=== PATIENT | female | born 1940 | race Caucasian/White ===

== ENCOUNTER 2017-03-01 03:59 | Inpatient (IN) | payer OTHER ==
[2017-03-01] MEDS ORDERED: AMPICILLIN/SULBACTAM 3 GM in NS 100 ML IV ONE (04:32)
[2017-03-01] MEDS ORDERED: NS 500 ML IV ONE (04:36)
--- NOTE | 2017-03-01 04:43 | EDPHY ---
H & P Time Seen by Provider: 03/01/17 04:18 HPI/ROS: HPI Mechanical fall, cat bite to right foot. 76-year-old female by ambulance from her assisted living facility. This patient reports that she got up in the middle of the night. She thinks she got up to go to the bathroom. She went to her balcony door. She is not sure why she did this. She then tripped on the door slide fell to the ground on her balcony. It took her a while to get up then she was able to get up. She was assisted by staff after she had gotten up by herself and got herself back to her bed. She was brought to the emergency department to be evaluated. She reports a history of a cat bite several days ago to her right foot. She has some right foot swelling secondary to this. She is not diabetic. ROS: Constitutional: No fever, no chills. No weakness. Eyes: No discharge. No changes in vision. ENT: No sore throat. No nasal congestion or rhinorrhea. Respiratory: No cough. No shortness of breath. Cardiac: No chest pain, no palpitations. Gastrointestinal: No abdominal pain, no vomiting, no diarrhea. Genitourinary: No hematuria. No dysuria or increased frequency with urination. Musculoskeletal: No back pain. No neck pain. Right foot swelling as above. Skin: No rashes. Neurological: No headache. No focal weakness or altered sensation. Past medical history: Chronic pain, Parkinson's. Social history: Nonsmoker. Does have family in the area. From assisted living. No alcohol. Physical Exam: General Appearance: Alert, no distress. This patient is responding to questions appropriately and in full sentences. This patient appears well- hydrated and well-nourished. Head: Normocephalic atraumatic. Face: Facial bones are stable on palpation. Eyes: Pupils equal and round and reactive to light, no pallor or injection. No lid erythema or edema. ENT, Mouth: Mucous membranes moist. Dentition is intact. No malocclusion of the jaw. No tongue lacerations or abrasions. Pharynx is clear. The bilateral nasal canals are clear. No septal hematoma. Respiratory: There are no retractions, lungs are clear to auscultation with good air movement bilaterally. Chest wall is stable to AP and lateral palpation. Cardiovascular: Regular rate and rhythm. No murmur. Gastrointestinal: Abdomen is soft and nontender, no masses, bowel sounds normal. Neurological: Motor sensory function is intact. Cranial nerves are normal. Skin: Warm and dry, no rashes. No lacerations, abrasions or contusions. Musculoskeletal: Neck is supple and nontender. The trachea is midline. No midline cervical, thoracic, lumbar or sacral tenderness on palpation. No flank tenderness on palpation. Right foot examination: Significant for diffuse swelling over the dorsal aspect of the right foot which involves the right leg as well up through the right calf. She has got to puncture wounds dorsal mid lateral aspect of the right foot. There is very faint erythema and some associated warmth to this area. Extremities are symmetrical, full range of motion. All joints in the bilateral upper and bilateral lower extremities range without pain or impingement. No tenderness on palpation of the long bones in the bilateral upper and bilateral lower extremities. Psychiatric: No agitation. No depression. Database: EKG: Imaging: Right foot x-ray series: Negative for acute fracture, subluxation, dislocation and acute radiopaque foreign body. Interpreted by me. Right lower extremity venous ultrasound: Howe cyst, otherwise negative for DVT. Results were discussed with staff radiologist Dr. Gustavo Mckenna. Procedures: Emergency department course: IV placed per EMS. After my evaluation she was started on 3 g of IV Unasyn. X- rays obtained. Will also ultrasound lower extremity to evaluate for possible DVT. I do not suspect significant traumatic injury from her fall. 5:30 a.m., informed by nursing staff that the patient is very unsteady on her feet while she was up trying to go to the bathroom. She is unable to walk without assistance. She is a fall risk. 5:45 a.m., spoke with on-call hospitalist, Dr. Templeton. Case discussed in detail. She has accepted this patient for admission. The patient was admitted to the hospitalist service in stable condition. Differential Diagnosis: The differential diagnosis on this patient includes but is not limited to cat bite right foot, right foot cellulitis secondary to this. This represents a partial list of diagnoses considered. These considerations are based on history , physical exam, past history, reassessment and diagnostic testing. Smoking Status: Never smoked Constitutional: Initial Vital Signs Temperature (C) 37 C 03/01/17 04:05 Heart Rate 93 03/01/17 04:05 Respiratory Rate 16 03/01/17 04:05 Blood Pressure 125/66 H 03/01/17 04:05 O2 Sat (%) 97 03/01/17 04:05 O2 Delivery Mode Room Air Allergies/Adverse Reactions: dental meds Allergy (Unknown, Uncoded 04/05/15 19:40) MYCIN Allergy (Uncoded 09/06/16 12:07) Home Medications: Medication Instructions Recorded Sinemet 08/25/15 Medical Decision Making - Data Points Laboratory Results: Laboratory Results 03/01/17 04:00 03/01/17 04:00 03/01/17 03/01/17 04:00 04:00 WBC 9.01 10^3/uL 10^3/uL (3.80-9.50) RBC 4.45 10^6/uL 10^6/uL (4.18-5.33) Hgb 14.3 g/dL g/dL (12.6-16.3) Hct 43.0 % % (38.0-47.0) MCV 96.6 fL fL (81.5-99.8) MCH 32.1 pg pg (27.9-34.1) MCHC 33.3 g/dL g/dL (32.4-36.7) RDW 12.9 % % (11.5-15.2) Plt Count 199 10^3/uL 10^3/uL (150-400) MPV 10.6 fL fL (8.7-11.7) Neut % (Auto) 74.7 % H % (39.3-74.2) Lymph % (Auto) 16.8 % % (15.0-45.0) [place] % (Auto) 6.3 % % (4.5-13.0) Eos % (Auto) 1.2 % % (0.6-7.6) Baso % (Auto) 0.7 % % (0.3-1.7) Nucleat RBC Rel Count 0.0 % % (0.0-0.2) Absolute Neuts (auto) 6.73 10^3/uL H 10^3/uL (1.70-6.50) Absolute Lymphs (auto) 1.51 10^3/uL 10^3/uL (1.00-3.00) Absolute Monos (auto) 0.57 10^3/uL 10^3/uL (0.30-0.80) Absolute Eos (auto) 0.11 10^3/uL 10^3/uL (0.03-0.40) Absolute Basos (auto) 0.06 10^3/uL 10^3/uL (0.02-0.10) Absolute Nucleated RBC 0.00 10^3/uL 10^3/uL (0-0.01) Immature Gran % 0.3 % % (0.0-1.1) Immature Gran # 0.03 10^3/uL 10^3/uL (0.00-0.10) Sodium 139 mEq/L mEq/L (134-144) Potassium 4.2 mEq/L mEq/L (3.5-5.2) Chloride 105 mEq/L mEq/L (97-110) Carbon Dioxide 23 mEq/l mEq/l (22-31) Anion Gap 11 mEq/L mEq/L (8-16) BUN 17 mg/dL mg/dL (7-23) Creatinine 0.7 mg/dL mg/dL (0.6-1.0) Estimated GFR > 60 Glucose 116 mg/dL H mg/dL (70-100) Calcium 10.0 mg/dL mg/dL (8.5-10.4) Medications Given: Discontinued Medications Ampicillin Sodium/Sulbactam (Sodium 3 gm/ Sodium Chloride) 100 mls @ 200 mls/ hr IV EDNOW ONE PRN Reason: Protocol Stop: 03/01/17 05:01 Last Admin: 03/01/17 05:14 Dose: 100 mls Sodium Chloride (Ns) 500 mls @ 0 mls/hr IV ONCE ONE PRN Reason: Wide Open Stop: 03/01/17 04:37 Last Admin: 03/01/17 05:14 Dose: 500 mls Departure - Departure Disposition: [facility] Clinical Impression: Cat bite of right foot, Mechanical fall at home, Cellulitis of right foot, At risk for falling Referrals: Nichol Mulligan MD [Primary Care Provider] - As per Instructions
[2017-03-01 04:52] LABS: % IMMATURE GRANULYOCYTES 0.3 % (0.0-1.1); ABSOLUTE IMMATURE GRANULOCYTES 0.03 10^3/uL (0.00-0.10); ADD DIFF? NO; ADD MORPH? NO; ADD SCAN? NO; ATYPICAL LYMPHOCYTE FLAG 0 (0-99); FRAGMENT RBC FLAG 0 (0-99); HEMOGLOBIN 14.3 g/dL (12.6-16.3); LEFT SHIFT FLG 0 (0-99); LIPEMIA HEMOLYSIS FLAG 80 (0-99); MEAN CELL HEMOGLOBIN 32.1 pg (27.9-34.1); MEAN CELL HEMOGLOBIN CONCENTR. 33.3 g/dL (32.4-36.7); MEAN CELL VOLUME 96.6 fL (81.5-99.8); MEAN PLATELET VOLUME 10.6 fL (8.7-11.7); PLATELET CLUMPS FLAG 0 (0-99); PLATELET COUNT 199 10^3/uL (150-400); RED BLOOD CELL COUNT 4.45 10^6/uL (4.18-5.33); RED CELL DISTRIBUTION WIDTH 12.9 % (11.5-15.2)
[2017-03-01 04:53] LABS: ANION GAP 11 mEq/L (8-16); CARBON DIOXIDE 23 mEq/l (22-31); CHLORIDE 105 mEq/L (97-110); CREATININE 0.7 mg/dL (0.6-1.0); GLOMERULAR FILTRATION RATE > 60; GLUCOSE 116 mg/dL (70-100); POTASSIUM 4.2 mEq/L (3.5-5.2); SODIUM 139 mEq/L (134-144)
[2017-03-01] MEDS ORDERED: ACETAMINOPHEN 325 MG TAB PO PRN (06:23)
[2017-03-01] MEDS ORDERED: OXYCODONE/APAP 5/325 TAB PO PRN (06:23)
[2017-03-01] MEDS ORDERED: ONDANSETRON DISINTEGRATING 4 MG TAB PO PRN (06:23)
[2017-03-01] MEDS ORDERED: NS 1,000 ML IV ONE (06:23)
[2017-03-01] MEDS ORDERED: ONDANSETRON 4 MG/2 ML VIAL IVP PRN (06:23)
--- NOTE | 2017-03-01 07:47 | GHP ---
[f rep st] HISTORY AND PHYSICAL DATE OF ADMISSION: 03/01/2017 CHIEF COMPLAINT: Fall. HISTORY OF PRESENT ILLNESS: A 76-year-old female with a recent diagnosis of Parkinson's who is inco nsistently taking her medications who dashawn early this morning to let her cat out on her balcony and tripped and fell on the runner of the glass sliding door. Patient was down for approximately a half hour before EMS or assistance at her assisted living responded. She was transported by EMS to the emergency department. In the ED, denying any specific hip, joint, or head pain. Denied hitting her head. Does report a recent cat bite on her right lower extremity. Was noted to have some asymmetr ic edema there and some erythema. Patient denies any subjective fevers or chills. Denies any dizzi ness, palpitations, chest pain, shortness of breath, dysuria, hematuria, diarrhea, hematochezia. PAST MEDICAL HISTORY: Parkinson's. SOCIAL HISTORY: Negative for tobacco, alcohol, or illicit drugs. FAMILY HISTORY: Negative for Parkinson's. ADVANCED DIRECTIVES: Patient was unsure, but believes she wanted to be full cor, full tube at this time. REVIEW OF SYSTEMS: A 10-point review is negative with the exception of that reported in the HPI. PHYSICAL EXAMINATION: VITAL SIGNS: Blood pressure 147/77, heart rate 80, respiratory rate 19, 97% on room air, 36.7. GENERAL: This is a fragile-appearing, elderly female in no acute distress. POLO NT: Notable for dry mucous membranes. Eye exam is negative for any icterus. CARDIAC: Patient is regular rate and rhythm. PULMONARY: Good respiratory effort. Clear to auscultation bilaterally. GASTROINTESTINAL: Positive bowel sounds. ABDOMEN: Soft and nontender in all 4 quadrants. MUSCULO SKELETAL: There is more prominent edema of the right lower extremity than the left, although it is slight. SKIN: Emergency department noted cellulitis of the right lower extremity. I see very nereyda le erythema of the skin. I do see remnant puncture cee, apparently, from the cat. However, no ma rked angry erythema or skin streaking. NEUROLOGIC: She is alert and oriented x3. PSYCHIATRIC: Sh e is pleasant and cooperative on interview and examination. DATA: White count 9.01. Sodium 139, creatinine 0.7. Foot x-ray which I personally reviewed and in terpreted shows no acute fractures or subcutaneous air. ASSESSMENT AND PLAN: This is a 76-year-old female presenting after mechanical fall. 1. Mechanical fall. Suspect this may be related to her untreated Parkinson's. I did discuss at [facility] the importance of her gait strength, fluidity, and stability and how important maintaining her medications would be to her ultimate safety. I am waiting for pharmacy to medication reconcile her Sinemet dosing. Would recommend that we continue this. I have ordered physical therapy, occupation al therapy for evaluations and recommendations on disposition planning. 2. Right lower extremity cellulitis secondary to cat bite. As above, the erythema of the skin must be markedly improved from that reported from the emergency department, after receiving a dose of Un asyn. I have continued this IV while the patient is in the hospital and then can transition to an o ral agent. 3. Parkinsonism. Again, have asked that Physical Therapy/Occupational Therapy evaluate the patient . Should continue Sinemet, once medications are reconciled. 4. Prophylaxis with Lovenox. DIET: Regular. DISPOSITION: I expect in greater than 2 midnights, as the patient is quite unstable and not safe fo r disposition to home, will require therapy evaluations and I suspect some treatment with Sinemet be fore we see improvement in her safety to ambulate. I have discussed case with the emergency room ph ysician. The patient will be triaged to the medical-surgical floor for care. /[id number]/MODL
[2017-03-01] MEDS: ENOXAPARIN 40 MG/0.4 ML SYR SC SCH (10:04)
[2017-03-01] MEDS: AMPICILLIN/SULBACTAM 3 GM in NS 100 ML IV SCH ×2 (11:49→18:31)
[2017-03-01] MEDS: CARBIDOPA/LEVODOPA 10MG/100MG 1 TAB PO SCH ×2 (16:43→22:43)
[2017-03-01] MEDS: QUEtiapine FUMARATE 25 MG TAB PO SCH (22:43)
[2017-03-02] MEDS: AMPICILLIN/SULBACTAM 3 GM in NS 100 ML IV SCH ×4 (00:08→17:40)
[2017-03-02 04:57] LABS: % IMMATURE GRANULYOCYTES 0.2 % (0.0-1.1); ABSOLUTE IMMATURE GRANULOCYTES 0.01 10^3/uL (0.00-0.10); ADD DIFF? NO; ADD MORPH? NO; ADD SCAN? NO; ATYPICAL LYMPHOCYTE FLAG 20 (0-99); FRAGMENT RBC FLAG 0 (0-99); HEMATOCRIT 36.1 % (38.0-47.0); LEFT SHIFT FLG 0 (0-99); LIPEMIA HEMOLYSIS FLAG 80 (0-99); MEAN CELL HEMOGLOBIN 32.3 pg (27.9-34.1); MEAN CELL HEMOGLOBIN CONCENTR. 33.2 g/dL (32.4-36.7); MEAN CELL VOLUME 97.3 fL (81.5-99.8); PLATELET CLUMPS FLAG 0 (0-99); PLATELET COUNT 170 10^3/uL (150-400); RED BLOOD CELL COUNT 3.71 10^6/uL (4.18-5.33); RED CELL DISTRIBUTION WIDTH 13.1 % (11.5-15.2)
[2017-03-02 05:06] LABS: ANION GAP 4 mEq/L (8-16); CALCIUM 8.8 mg/dL (8.5-10.4); CARBON DIOXIDE 25 mEq/l (22-31); CHLORIDE 110 mEq/L (97-110); CREATININE 0.6 mg/dL (0.6-1.0); GLOMERULAR FILTRATION RATE > 60; GLUCOSE 90 mg/dL (70-100); POTASSIUM 4.2 mEq/L (3.5-5.2); SODIUM 139 mEq/L (134-144)
[2017-03-02] MEDS: CARBIDOPA/LEVODOPA 10MG/100MG 1 TAB PO SCH ×3 (10:02→21:27)
[2017-03-02] MEDS: ENOXAPARIN 40 MG/0.4 ML SYR SC SCH (12:17)
[2017-03-02] MEDS: GLUCOSAMINE SULF 500 MG CAP PO SCH (12:17)
[2017-03-02] MEDS: CYANO/VITAMIN B12 1000 MCG TAB PO SCH (12:17)
--- NOTE | 2017-03-02 15:35 | HOSPPROG ---
Hospitalist Progress Note Assessment/Plan: 76-year-old female admitted secondary to a fall. No signs of trauma were noted but she reported a cat scratched her right lower extremity and some erythema was noted she was admitted with cellulitis confusion and questions of her stability. Patient is new to me today. - Acute right lower extremity cellulitis, possible cat scratch, patient is on Unasyn and slowly improving there is some edema about the right lower extremity. No signs of ascending cellulitis. 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 Her fall may be related to noncompliance with her Sinemet. Today the patient is less alert than previously and that may be due to the use of Percocet. I am going to DC the Percocet and assess her mental status. - Status post mechanical fall: No signs of trauma. - Disposition: I called Dr. Nichol Mulligan is office her PCP for further information regarding this patient's background health and mental status. She lives alone and has function with minimal assistance. Her current mental status and function are inconsistent with this disposition. Currently without further clarification on planning and SNF discharge yet will need background information from Dr. Nichol Mulligan. Certainly she seems to demonstrated dementia and if she is not compliant with her Sinemet then she becomes a risk of fall. - Code status: Full - DVT prophylaxis: Lovenox - Plan: DC Percocet and reassess her mental status and function. Contact Dr. Nichol Mulligan for further clarification on her level of function and mental status. Subjective: no complaints she seems less responsive and arousable than yesterday. This may be secondary to 1 dose of Percocet which he received earlier. Objective: Vital Signs Temp Pulse Resp BP Pulse Ox 36.9 C 86 16 141/68 H 94 03/02/17 12:00 03/02/17 12:00 03/02/17 12:00 03/02/17 12:00 03/02/17 12:00 Laboratory Results 03/02/17 04:30 03/02/17 04:30 03/01/17 03/02/17 03/03/17 05:59 05:59 05:59 Intake Total 600 Balance 600 - Time Spent With Patient Time Spent with Patient: greater than 35 minutes Time Spent with Patient: Greater than 35 minutes spent on this patients care, greater than 50% of time spent counseling, educating, and coordinating care regarding the above mentioned plan. - Pending Discharge Pending Discharge Within 24 Hours: No Pending Discharge Within 48 Hours: Yes Pending Discharge Date: 03/04/17 Pending Discharge Time: 11:00 - Physical Exam Constitutional: no apparent distress Eyes: PERRL Ears, Nose, Mouth, Throat: hard of hearing Cardiovascular: regular rate and rhythym, no murmur, rub, or gallop Respiratory: no respiratory distress, no rales or rhonchi, clear to auscultation Gastrointestinal: normoactive bowel sounds, soft, non-tender abdomen, no palpable masses Genitourinary: no bladder fullness Skin: warm Musculoskeletal: generalized weakness Neurologic: CN II-XII Intact ICD10 Worksheet Patient Problems: Problems Problem Status Onset At risk for falling Acute Cat bite of right foot Acute Cellulitis of right foot Acute
[2017-03-02] MEDS: QUEtiapine FUMARATE 25 MG TAB PO SCH (21:27)
[2017-03-03] MEDS: AMPICILLIN/SULBACTAM 3 GM in NS 100 ML IV SCH ×2 (00:06→05:39)
[2017-03-03] MEDS: CARBIDOPA/LEVODOPA 10MG/100MG 1 TAB PO SCH ×3 (08:34→21:04)
[2017-03-03] MEDS: GLUCOSAMINE SULF 500 MG CAP PO SCH (08:34)
[2017-03-03] MEDS: CYANO/VITAMIN B12 1000 MCG TAB PO SCH (08:34)
[2017-03-03] MEDS: ENOXAPARIN 40 MG/0.4 ML SYR SC SCH (08:36)
--- NOTE | 2017-03-03 13:50 | HOSPPROG ---
Hospitalist Progress Note Assessment/Plan: 76-year-old female admitted secondary to a fall. No signs of trauma were noted but she reported a cat scratched her right lower extremity and some erythema was noted she was admitted with cellulitis confusion and questions of her stability. Patient is new to me today. Chart reviewed. - Acute right lower extremity cellulitis, possible cat scratch, patient was on Unasyn transition to Augmentin. Slowly improving there is some edema about the right lower extremity. No signs of ascending cellulitis. 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 Her fall may be related to noncompliance with her Sinemet. Today the patient is alert. - Status post mechanical fall: No signs of trauma. - Disposition: Currently planning a SNF discharge. - Code status: Full - DVT prophylaxis: Lovenox - Plan: Cont supportive care. Subjective: Up in the chair. No specific issues. Feeling ok. Objective: Vital Signs Temp Pulse Resp BP Pulse Ox 36.5 C 93 12 92/49 L 94 03/03/17 09:07 03/03/17 09:07 03/03/17 09:07 03/03/17 09:59 03/03/17 09:07 Laboratory Results 03/02/17 04:30 03/02/17 04:30 03/02/17 03/03/17 03/04/17 05:59 05:59 05:59 Intake Total 600 Output Total 200 Balance 600 -200 - Physical Exam Constitutional: no apparent distress, not in pain, chronically ill appearing Eyes: PERRL, anicteric sclera, EOMI Ears, Nose, Mouth, Throat: moist mucous membranes, hearing normal, ears appear normal Cardiovascular: regular rate and rhythym, edema, No JVD Respiratory: no respiratory distress, clear to auscultation, reduced air movement Gastrointestinal: No tenderness, No ascites, No guarding Skin: warm, no fluctuance, erythema Musculoskeletal: normal joint ROM, no joint effusions, generalized weakness Psychiatric: not anxious, not encephalopathic, poor insight, poor judgement, poor memory ICD10 Worksheet Patient Problems: Problems Problem Status Onset Cat bite of right foot Acute Cellulitis of right foot Acute At risk for falling Acute
[2017-03-03] MEDS: QUEtiapine FUMARATE 25 MG TAB PO SCH (21:04)
[2017-03-03] MEDS: AMOXICILLIN/CLAVULANATE POT 875/125 MG TAB PO SCH (21:04)
[2017-03-03 22:45] VITALS: RESP 16
[2017-03-04 08:04] VITALS: BP 146/82; PULSE 78; TEMP 97.5; O2SAT 95
[2017-03-04] MEDS: CARBIDOPA/LEVODOPA 10MG/100MG 1 TAB PO SCH ×2 (08:30→15:47)
[2017-03-04] MEDS: GLUCOSAMINE SULF 500 MG CAP PO SCH (08:31)
[2017-03-04] MEDS: CYANO/VITAMIN B12 1000 MCG TAB PO SCH (08:31)
[2017-03-04] MEDS: ENOXAPARIN 40 MG/0.4 ML SYR SC SCH (08:31)
[2017-03-04] MEDS: AMOXICILLIN/CLAVULANATE POT 875/125 MG TAB PO SCH (08:31)
--- NOTE | 2017-03-04 14:36 | PDIAF ---
- Diagnosis Diagnosis: cellulitits Code Status: Full Code - Medication Management Discharge Medications: Medications to Continue on Transfer Carbidopa/Levodopa 10/100Mg [Sinemet 10/100 MG (*)] 1 tab PO TID 08/25/15 [Last Taken Unknown] Cyanocobalamin [Vitamin B12 (*)] 1,000 mcg PO DAILY 03/01/17 [Last Taken Unknown ] Glucosamine Sulfate [Glucosamine Sulfate 500 MG (*)] 500 mg PO DAILY 03/01/17 [ Last Taken Unknown] Herbals/Supplements -Info Only 1 ea PO DAILY 03/01/17 [Last Taken Unknown] QUEtiapine FUMARATE [Seroquel 25 mg (*)] 12.5 mg PO HS 03/01/17 [Last Taken Unknown] Acetaminophen [Tylenol 325mg (*)] 650 mg PO Q4HRS PRN #0 tab 03/04/17 [Last Taken Unknown] Amoxicillin/Clavulanate Pot [Augmentin 875 MG TAB (*)] 875 mg PO BID #3 tab 11/19 [Last Taken Unknown] Discharge Medications: Refer to the Discharge Home Medication list for PRN reason. PICC Care - Routine: N/A - Orders Services needed: Registered Nurse, Physical Therapy, Occupational Therapy, Speech Language Pathologist Diet Recommendation: no restrictions on diet - Follow Up Care Current Providers and Referrals: Nichol Mulligan MD [Primary Care Provider] - As per Instructions
--- NOTE | 2017-03-04 14:37 | GDS ---
[f rep st] DISCHARGE SUMMARY DISCHARGE DIAGNOSES: 1. Right lower extremity cellulitis. 2. Dementia, with weakness. 3. Mechanical fall. STUDIES AND PROCEDURES DONE: Doppler, with no evidence of DVT. PHYSICAL EXAM: GENERAL: The patient is alert. VITAL SIGNS: Afebrile at 36.4, pulse is 78, respir atory rate 16, blood pressure is 146/82. She is saturating 95% on room air. I have seen and evalua rashard the patient on the day of discharge. HOSPITAL COURSE: The patient is a 76-year-old female, who presented to the emergency room secondary to fall. She was evaluated and diagnosed with: 1. Right lower extremity cellulitis. During this hospitalization, she was treated with IV Unasyn, as it was felt that she may have experienced a cat scratch, she responded well and had transition to oral Augmentin. She will continue this in the outpatient setting for a total of 5 days. Her cellu litis is significantly improved. 2. Dementia with weakness. The patient is close to her baseline. She has a history of Parkinson d isease. She is not always compliant with her Sinemet. She will continue follow up in the outpatient setting. 3. Mechanical fall. Again, this is likely secondary to the patient's acute infection, as well as h er Parkinson disease. She will continue physical therapy and occupational therapy. DISPOSITION: The patient will be discharged to [facility] for further rehabilitation and management . There are no pending studies. DISCHARGE MEDICATIONS: Please refer to EMR form. I have started the patient on Augmentin 875 p.o. b.i.d. for a total of 5 days secondary to her lower extremity cellulitis. I have not adjusted her o ther previously prescribed home medications to the best of my knowledge. I spent greater than 35 minutes on the care, coordination, and management of the patient's dispositi on. /[id number]/MODL
== END 2017-03-04 16:14 | DRG 603 ==
LOC: EDUNIT# → F3E 06:24
PROVIDERS: ADMIT Hospitalist; ATTEND Hospitalist
DX: L03.115 Cellulitis of right lower limb (principal); G20 Parkinson's disease; F02.80 Dementia in other diseases classified elsewhere, unspecified severity, without behavioral disturbance, psychotic disturbance, mood disturbance, and anxiety; S91.351A Open bite, right foot, initial encounter; W55.01XA Bitten by cat, initial encounter; Y92.099 Unspecified place in other non-institutional residence as the place of occurrence of the external cause
CPT/HCPCS: 92507-GN; 92523-GN; 96365; 97116-GP; 97161-GP; 97166-GO; 97535-GO; G8978-GP-CJ; G8979-GP-CI; G8987-GO-CL; G8988-GO-CJ; G9165-GN-CL; G9166-GN-CJ; G9167-GN-CK; J0295; J1650

== ENCOUNTER 2017-06-13 09:51 | Inpatient (IN) | payer OTHER ==
--- NOTE | 2017-06-13 10:00 | CPEKG ---
Heart Rate: 91 RR Interval: 659 P-R Interval: 156 QRSD Interval: 84 QT Interval: 332 QTC Interval: 409 P [place]: 46 QRS [place]: -51 T Wave [place]: 12 EKG Severity - ABNORMAL ECG - EKG Impression: SINUS TACHYCARDIA EKG Impression: MULTIPLE ATRIAL PREMATURE COMPLEXES EKG Impression: LEFT ANTERIOR FASCICULAR BLOCK EKG Impression: BORDERLINE R WAVE PROGRESSION, ANTERIOR LEADS EKG Impression: BORDERLINE T WAVE ABNORMALITIES Electronically Signed By: Brad Bolden 13-Jun-2017 15:00:40
[2017-06-13 10:27] LABS: ANION GAP 11 mEq/L (8-16); CALCIUM 9.9 mg/dL (8.5-10.4); CARBON DIOXIDE 25 mEq/l (22-31); CHLORIDE 103 mEq/L (97-110); CREATININE 0.8 mg/dL (0.6-1.0); GLOMERULAR FILTRATION RATE > 60; GLUCOSE 133 mg/dL (70-100); POTASSIUM 4.2 mEq/L (3.5-5.2); SODIUM 139 mEq/L (134-144)
[2017-06-13 10:43] LABS: % IMMATURE GRANULYOCYTES 0.4 % (0.0-1.1); ABSOLUTE IMMATURE GRANULOCYTES 0.04 10^3/uL (0.00-0.10); ADD DIFF? NO; ADD MORPH? NO; ADD SCAN? NO; ATYPICAL LYMPHOCYTE FLAG 0 (0-99); FRAGMENT RBC FLAG 0 (0-99); HEMATOCRIT 41.9 % (38.0-47.0); HEMOGLOBIN 14.2 g/dL (12.6-16.3); LEFT SHIFT FLG 0 (0-99); LIPEMIA HEMOLYSIS FLAG 90 (0-99); MEAN CELL HEMOGLOBIN 32.4 pg (27.9-34.1); MEAN CELL HEMOGLOBIN CONCENTR. 33.9 g/dL (32.4-36.7); MEAN CELL VOLUME 95.7 fL (81.5-99.8); MEAN PLATELET VOLUME 9.8 fL (8.7-11.7); PLATELET CLUMPS FLAG 20 (0-99); PLATELET COUNT 215 10^3/uL (150-400); RED BLOOD CELL COUNT 4.38 10^6/uL (4.18-5.33); RED CELL DISTRIBUTION WIDTH 12.9 % (11.5-15.2)
[2017-06-13 11:38] LABS: COLOR YELLOW; LEUKOCYTE ESTERASE,URINE NEGATIVE (NEGATIVE); NITRITE,URINE NEGATIVE (NEGATIVE)
[2017-06-13 11:44] LABS: MUCUS 1+ /lpf (NONE-1+)
--- NOTE | 2017-06-13 11:52 | EDPHY ---
H & P Stated Complaint: found down Time Seen by Provider: 06/13/17 10:02 HPI/ROS: CHIEF COMPLAINT: found down HISTORY OF PRESENT ILLNESS: 76-year-old female presents emergency department by ambulance after she was found down at her independent living facility today. Patient was seen normal at 7:00 a.m. and at 9:00 a.m. was found down on the floor in her bedroom. She was awake and alert. Patient has a history of dementia, she also has a history of frequent mechanical falls. Patient is unsure why she fell. She is unsure of loss of consciousness. She denies any chest pain, shortness of breath, abdominal pain. She denies any pain to her extremities. REVIEW OF SYSTEMS: A comprehensive 10 point review of systems is otherwise negative aside from elements mentioned in the history of present illness. Source: Patient, Family, EMS Exam Limitations: Clinical condition - Personal History Current Tetanus/Diphtheria Vaccine: Yes Current Tetanus Diphtheria and Acellular Pertussis (TDAP): Yes Tetanus Vaccine Date: < 10 YEARS - Medical/Surgical History Hx Asthma: No Hx Chronic Respiratory Disease: No Hx Diabetes: No Hx Cardiac Disease: No Hx Renal Disease: No Hx Cirrhosis: No Hx Alcoholism: No Hx HIV/AIDS: No Hx Splenectomy or Spleen Trauma: No Other PMH: PMHx: Parkinson's. PSHx: - Social History Smoking Status: Never smoked - Physical Exam Exam: General Appearance: awake, no distress, comfortable. Head: Atraumatic without scalp tenderness or obvious injury Eyes: Pupils equal, round, reactive to light, EOMI, no trauma, no injection. Ears: Clear bilaterally, no perforation, no hemotympanum Nose: Atraumatic, no rhinorrhea, no septal hematoma Neck: The cervical spine is non-tender and there is no pain or neurologic deficits with active range of motion. Cardiovascular: tachycardic, systolic murmur Good capillary refill all extremities. Chest: Atraumatic, equal bilateral breath sounds. Chest is non-tender to palpation. Gastrointestinal: Soft, non-tender, non-distended. No rebound, guarding, or peritoneal signs. There is no evidence of external or internal trauma. Back:There is no thoracic or lumbar spine or paraspinal tenderness. Extremities: All extremities are non-tender to palpation without obvious deformity. There is full active range of motion of the joints. Neurological: Awake, alert, no facial asymmetry, moves all extremities, follows commands Skin: No lacerations, [place], or abrasions. Constitutional: Initial Vital Signs Temperature (C) 36.6 C 06/13/17 09:56 Heart Rate 104 H 06/13/17 09:56 Respiratory Rate 16 06/13/17 09:56 Blood Pressure 158/97 H 06/13/17 09:56 O2 Sat (%) 95 06/13/17 09:56 O2 Delivery Mode Room Air Allergies/Adverse Reactions: dental meds Allergy (Unknown, Uncoded 04/05/15 19:40) MYCIN Allergy (Uncoded 09/06/16 12:07) Home Medications: Medication Instructions Recorded Carbidopa/Levodopa 10/100Mg 1 tab PO TID 08/25/15 [Sinemet 10/100 MG (*)] Cyanocobalamin [Vitamin B12 (*)] 1,000 mcg PO DAILY 03/01/17 Glucosamine Sulfate [Glucosamine 500 mg PO DAILY 03/01/17 Sulfate 500 MG (*)] Herbals/Supplements -Info Only 1 ea PO DAILY 03/01/17 QUEtiapine FUMARATE [Seroquel 25 12.5 mg PO HS 03/01/17 mg (*)] Acetaminophen [Tylenol 325mg (*)] 650 mg PO Q4HRS PRN #0 tab 03/04/17 Amoxicillin/Clavulanate Pot 875 mg PO BID #3 tab 03/04/17 [Augmentin 875 MG TAB (*)] Medical Decision Making - Diagnostics Imaging Results: Imaging Impressions Head CT 06/13/17 11:12 Impression: 1. No acute intracranial findings. 2. Diffuse cerebral atrophy with periventricular and subcortical low attenuation consistent with chronic microvascular ischemic gliosis. Imaging: Discussed imaging studies w/ call center assistant Radiologist ED Course/Re-evaluation: IV established by EMS. CBC, chemistry panel, urinalysis, ekg and troponin ordered. CT brain and c-spine ordered. Pt denies any complaints, she is unable to tell me if this was a mechanical fall or a syncopal episode. She is unsure if she lost consciousness. EKG shows sinus tachycardia, left anterior fascicular block, none for previous comparison. Troponin is normal, CBC and chemistry panel unremarkable, urinalysis with no signs of infection. Plan is to admit to hospitalist for further evaluation and observation. 1215pm- CT brain and C-spine with no acute abnormality, incidental finding of a right thyroid nodule of 1.6 cm that should be further evaluated. - Data Points Laboratory Results: Laboratory Results 06/13/17 09:54 06/13/17 09:54 06/13/17 06/13/17 06/13/17 11:30 09:54 09:54 WBC RBC Hgb Hct MCV MCH MCHC RDW Plt Count MPV Neut % (Auto) Lymph % (Auto) Rock % (Auto) Eos % (Auto) Baso % (Auto) Nucleat RBC Rel Count Absolute Neuts (auto) Absolute Lymphs (auto) Absolute Monos (auto) Absolute Eos (auto) Absolute Basos (auto) Absolute Nucleated RBC Immature Gran % Immature Gran # Sodium 139 mEq/L mEq/L (134-144) Potassium 4.2 mEq/L mEq/L (3.5-5.2) Chloride 103 mEq/L mEq/L (97-110) Carbon Dioxide 25 mEq/l mEq/l (22-31) Anion Gap 11 mEq/L mEq/L (8-16) BUN 19 mg/dL mg/dL (7-23) Creatinine 0.8 mg/dL mg/dL (0.6-1.0) Estimated GFR > 60 Glucose 133 mg/dL H mg/dL (70-100) Calcium 9.9 mg/dL mg/dL (8.5-10.4) Troponin I < 0.012 ng/mL ng/mL (0.000-0.034) Urine Color YELLOW Urine Appearance HAZY Urine pH 5.0 (5.0-7.5) Ur Specific [place] 1.021 (1.002-1.030) Urine Protein NEGATIVE (NEGATIVE) Urine Ketones TRACE H (NEGATIVE) Urine Blood 2+ H (NEGATIVE) Urine Nitrate NEGATIVE (NEGATIVE) Urine Bilirubin NEGATIVE (NEGATIVE) Urine Urobilinogen NEGATIVE EU EU (0.2-1.0) Ur Leukocyte Esterase NEGATIVE (NEGATIVE) Urine RBC 5-10 /hpf H /hpf (0-3) Urine WBC 1-3 /hpf /hpf (0-3) Ur Epithelial Cells TRACE /lpf /lpf (NONE-1+) Urine Mucus 1+ /lpf /lpf (NONE-1+) Urine Glucose NEGATIVE (NEGATIVE) 09/11/17 09:54 WBC 9.34 10^3/uL 10^3/uL (3.80-9.50) RBC 4.38 10^6/uL 10^6/uL (4.18-5.33) Hgb 14.2 g/dL g/dL (12.6-16.3) Hct 41.9 % % (38.0-47.0) MCV 95.7 fL fL (81.5-99.8) MCH 32.4 pg pg (27.9-34.1) MCHC 33.9 g/dL g/dL (32.4-36.7) RDW 12.9 % % (11.5-15.2) Plt Count 215 10^3/uL 10^3/uL (150-400) MPV 9.8 fL fL (8.7-11.7) Neut % (Auto) 87.2 % H % (39.3-74.2) Lymph % (Auto) 7.0 % L % (15.0-45.0) Rock % (Auto) 5.1 % % (4.5-13.0) Eos % (Auto) 0.0 % L % (0.6-7.6) Baso % (Auto) 0.3 % % (0.3-1.7) Nucleat RBC Rel Count 0.0 % % (0.0-0.2) Absolute Neuts (auto) 8.14 10^3/uL H 10^3/uL (1.70-6.50) Absolute Lymphs (auto) 0.65 10^3/uL L 10^3/uL (1.00-3.00) Absolute Monos (auto) 0.48 10^3/uL 10^3/uL (0.30-0.80) Absolute Eos (auto) 0.00 10^3/uL L 10^3/uL (0.03-0.40) Absolute Basos (auto) 0.03 10^3/uL 10^3/uL (0.02-0.10) Absolute Nucleated RBC 0.00 10^3/uL 10^3/uL (0-0.01) Immature Gran % 0.4 % % (0.0-1.1) Immature Gran # 0.04 10^3/uL 10^3/uL (0.00-0.10) Sodium Potassium Chloride Carbon Dioxide Anion Gap BUN Creatinine Estimated GFR Glucose Calcium Troponin I Urine Color Urine Appearance Urine pH Ur Specific [place] Urine Protein Urine Ketones Urine Blood Urine Nitrate Urine Bilirubin Urine Urobilinogen Ur Leukocyte Esterase Urine RBC Urine WBC Ur Epithelial Cells Urine Mucus Urine Glucose Departure - Departure Disposition: [facility] Acute Clinical Impression: Right thyroid nodule Fall Qualifiers: Encounter type: initial encounter Qualified Code(s): W19.XXXA - Unspecified fall, initial encounter Condition: Good Referrals: Nichol Mulligan MD [Primary Care Provider] - As per Instructions
[2017-06-13] MEDS ORDERED: ONDANSETRON DISINTEGRATING 4 MG TAB PO PRN (12:46)
[2017-06-13] MEDS ORDERED: ONDANSETRON 4 MG/2 ML VIAL IVP PRN (12:46)
[2017-06-13] MEDS ORDERED: ZOLPIDEM TARTRATE 5 MG TAB PO PRN (12:46)
[2017-06-13 13:01] LABS: MAGNESIUM 1.9 mg/dL (1.6-2.3)
[2017-06-13 13:23] LABS: CK-MB INTERPRETATION NEGATIVE (NEGATIVE)
[2017-06-13] MEDS: NS 1,000 ML IV SCH (13:42)
--- NOTE | 2017-06-13 14:25 | GHP ---
[f rep st] HISTORY AND PHYSICAL DATE OF ADMISSION: 06/13/2017 HISTORY OF PRESENT ILLNESS: This is a 76-year-old female admitted because she was found down at the [facility]. The patient gives a history that she was in the dining room of the [facility] and said thing s were close and that she tripped and fell, and remembers hitting the floor, and said she did not los e consciousness. The report we have from EMS, and the [facility] staff personnel, is that she was foun d down in her own apartment and did not have loss of consciousness, apparently could be aroused and w as then brought here for evaluation. There is no history, by the patient or from EMS, that she hit h er head, had loss of consciousness, or there were any signs of bleeding. The patient also denies hav ing chest pain or shortness of breath. The patient's history is suspect because, by the EMR record, she has Parkinson disease and some degree of dementia, which has not been quantified. It is clear th at there was a discrepancy between her history and what the facts of the day are. She does know that she is at [facility]; she does not know who the president is for sure and cannot tell me exactly the date or month. She does deny having any chest pain, shortness of breath, dysuria, hem aturia, diarrhea, or shortness of breath. PAST MEDICAL HISTORY: Parkinson's was diagnosed recently in the past year, and she is on Sinemet at an unknown dose. From the EMR, it looks as if she does not take her medications regularly and appare ntly she manages her own medications. There is no record in the EMR, or from the patient, of hyperte nsion, diabetes, or renal problems. PAST SURGICAL HISTORY: Unknown. ALLERGIES: Listed as being an antibiotic called a "mycin," but it is not specific. REVIEW OF SYSTEMS: A 10-point review of systems, from the patient and from staff, would indicate bibi t it is negative. The only relevant history is that she was probably treated for UTI approximately a week ago by an unknown antibiotic. I do not have those lab reports to corroborate that information. SOCIAL HISTORY: She does not smoke cigarettes and never has. Does not use alcohol or any drugs. Rhonda de dios is a resident at the [facility] and, I believe, in the independent living section. As I understand i t, she takes and manages her own medications though that seems odd, even in an independent-living sit uation. FAMILY HISTORY: Negative for Parkinson disease, from the EMR. The patient's history is suspect and can't be relied upon. CURRENT MEDICATIONS: Would include Sinemet, and they are being reconciled by pharmacy now. PHYSICAL EXAMINATION: GENERAL: This is a pleasant, arousable but slow to respond, female who appear s in no distress. Her blood pressure is elevated at 158/97, and is normalizing to 143/74. She is af ebrile. Heart rate was initially elevated, greater than 100, and has now fallen to approximately 98. Respirations are unlabored. She has 95% saturation on room air. HEENT: Shows no signs of trauma on the scalp, and there is no tenderness in the neck or cervical region. TMs are alex bilaterally. Face is without signs of trauma. Tongue and buccal mucosa are without trauma, and the mucous membran es are moist. NECK: Not supple, although there is no rigidity. It is just that she reports she is chronically stiff. CHEST: Wall is also nontender to palpation and shows no signs of trauma. LUNGS: Clear to P and A. HEART: Singular S1, S2. No murmur or gallop. ABDOMEN: Nontender and benign w ithout masses, tenderness, or organomegaly. EXTREMITIES: Trace edema. No signs of trauma. Her fee t are cold. Hands are warm. She has slow capillary refill in both hands and feet. Pulses are 2+ at the femorals, carotids; 1+ at dorsalis pedis bilaterally. No bruits are heard. NEUROLOGIC: An rosio ented x1 female. The patient is slow to respond and seems quite stiff. Cranial nerves 2-[address] to specific testing. Motor and sensory are grossly intact. LABORATORY: CBC is normal except for a white count of 9000, with a prominent left shift of 87% neutr ophils. Chemistry panel was normal except for an elevated glucose of 133, with a normal troponin and a procalcitonin pending. Urinalysis does not appear to show signs of infection, with 5-10 RBCs and 1-3 WBC. A culture is not indicated. ECG shows a sinus rhythm with frequent PACs in a sinus tachycardia. There is a left anterior fascicu lar block due to extreme left axis deviation, but no acute changes are noted. This is according to m y reading. CT scan of the head shows significant cerebral atrophy and microvascular disease with no acute infarct. Cervical spine series also shows significant degenerative changes but no fracture. T he CT and cervical spine were reviewed by myself on the PACS system. Of incidental note is, on the CT scan of the neck, there is a thyroid nodule noted, approximately 1 c m. ASSESSMENT: 1. Fall, with or without loss of consciousness. The exact history here is unclear, and it is unknow n how long she was down. There are no signs of pressure necrosis, but we will check a creatine kinas e for rhabdomyolysis. It seems probable that this lady's fall and inability to move is related to ta jeffy her Sinemet for her Parkinson disease. Exam would show that she is quite rigid at this moment. Thus, if she is not taking her medications on time, and if she is managing her own medications, then the medications need to be timed correctly, and perhaps she needs to have them distributed to her. At this point, there does not directly appear to be any signs of an infection, and she does not seem to have suffered any trauma from the fall. 2. Sepsis with hypertension, tachycardia, and a leukocytosis. Leukocytosis as a left shift, and a p rocalcitonin is pending. The possibility is of a urinary tract infection, although the urine does se em to be clean. 3. Parkinson disease with a recent diagnosis in 2017. Clinically, she does seem quite stiff, and it is likely either she is not taking her medication or she is not taking them correctly on time. 4. Dementia. This is probably related to her Parkinson disease, and it is difficult to evaluate it if she is not receiving her Sinemet. Patients who become quite stiff due to a lack of appropriate me dication, or poor timing, become locked in. They have difficulty interacting because they can't func tion physically. I will order a cognitive evaluation on this lady, along with a swallowing evaluatio n at this point, although this cognitive evaluation should be used as a baseline only. 5. The thyroid nodule, which was noted on CT scan. We will obtain an ultrasound and a TSH and work this up further as needed. PLAN: The patient will be admitted and given some IV fluids although she, at this point, does appear to be euvolemic, with normal renal function. CK will be ordered relative to the possibility of bein g down for a while and of rhabdomyolysis. Her blood pressure seems to be normalizing, but we will wa tch this. Her medications will be reconciled, and we will endeavor to administer her medications on an appropriate and correct timing. With this, it is hopeful that she can correct some of the bradyki nesis, along with the assistance of PT and OT. TIME: This admission required 55 minutes. The billing should be for an inpatient status as it is go ing to require greater than 2 midnights to correct her underlying motor disorder and possible medical problems. Her code status, at this point, is a full code. Her power of prosecuting attorney is her sister, who lives out of state. /[id number]/MODL
[2017-06-13] MEDS: ACETAMINOPHEN 325 MG TAB PO PRN ×2 (15:56→22:19)
--- NOTE | 2017-06-13 18:25 | ASMTCMCOM ---
CM Note CM Note Notes: Patient was found down at her apartment after having a fall. It is unclear if patient lost consciousness or how long she was down on the floor. Patient recently diagnosed with Parkinsons and takes Sinemet. Patient's movements are rigid and appears stiff. There is concern whether patient should have her medications administered/monitored. Patient currently lives in independent living at [facility] ([phone]) and she would prefer to return there. If discharge recommendations are for patient to go to a SNF, the patient and her sister specifically do not want her to go to [facility]. Patient normally uses a walker to ambulate but has had frequent mechanical falls. Patient's sister, Key Trimble ([phone]) is patient's POA and is in [place]. Patient's PCP is Nichol Mulligan. Exact DC needs unknown at this time, CM to follow. Date Signed: 06/13/2017 06:24 PM Electronically Signed By:Maria Teresa Jean
[2017-06-14] MEDS: NS 1,000 ML IV SCH ×3 (00:21→18:27)
[2017-06-14 05:57] LABS: ANION GAP 7 mEq/L (8-16); CALCIUM 8.7 mg/dL (8.5-10.4); CARBON DIOXIDE 22 mEq/l (22-31); CHLORIDE 109 mEq/L (97-110); CREATININE 0.6 mg/dL (0.6-1.0); GLOMERULAR FILTRATION RATE > 60; GLUCOSE 113 mg/dL (70-100); SODIUM 138 mEq/L (134-144)
[2017-06-14 06:02] LABS: % IMMATURE GRANULYOCYTES 0.8 % (0.0-1.1); ABSOLUTE IMMATURE GRANULOCYTES 0.06 10^3/uL (0.00-0.10); ADD DIFF? NO; ADD MORPH? NO; ADD SCAN? NO; ATYPICAL LYMPHOCYTE FLAG 0 (0-99); FRAGMENT RBC FLAG 0 (0-99); HEMATOCRIT 36.1 % (38.0-47.0); HEMOGLOBIN 12.2 g/dL (12.6-16.3); LEFT SHIFT FLG 0 (0-99); LIPEMIA HEMOLYSIS FLAG 90 (0-99); MEAN CELL HEMOGLOBIN 32.2 pg (27.9-34.1); MEAN CELL HEMOGLOBIN CONCENTR. 33.8 g/dL (32.4-36.7); MEAN CELL VOLUME 95.3 fL (81.5-99.8); MEAN PLATELET VOLUME 10.2 fL (8.7-11.7); PLATELET CLUMPS FLAG 0 (0-99); PLATELET COUNT 160 10^3/uL (150-400); RED BLOOD CELL COUNT 3.79 10^6/uL (4.18-5.33)
[2017-06-14] MEDS ORDERED: ENOXAPARIN 30 MG/0.3 ML SYR SC SCH (09:00)
[2017-06-14] MEDS: ACETAMINOPHEN 325 MG TAB PO PRN (10:55)
--- NOTE | 2017-06-14 12:17 | HOSPPROG ---
Hospitalist Progress Note Objective: Vital Signs Temp Pulse Resp BP Pulse Ox 36.7 C 78 18 139/85 H 92 06/14/17 12:00 06/14/17 12:00 06/14/17 12:00 06/14/17 12:00 06/14/17 12:00 Laboratory Results 06/14/17 05:29 06/14/17 05:29 06/13/17 06/14/17 06/15/17 05:59 05:59 05:59 Intake Total 600 Balance 600 Laboratory Tests 06/13/17 06/13/17 06/13/17 09:54 09:54 09:57 WBC 9.34 Hgb 14.2 Creatine Kinase 377 H CK-MB (CK-2) Fraction 5.10 H Creatine Kinase Interp NEGATIVE Troponin I < 0.012 06/14/17 05:29 WBC 7.77 Hgb 12.2 L Creatine Kinase CK-MB (CK-2) Fraction Creatine Kinase Interp Troponin I ICD10 Worksheet Patient Problems: Problems Problem Status Onset Cat bite of right foot Acute Cellulitis of right foot Acute At risk for falling Acute Fall Acute Right thyroid nodule Acute
[2017-06-14] MEDS: CARBIDOPA/LEVODOPA 10MG/100MG 1 TAB PO SCH ×3 (14:22→22:39)
[2017-06-14] MEDS: ENOXAPARIN 40 MG/0.4 ML SYR SC SCH (15:11)
--- NOTE | 2017-06-14 15:52 | ASMTCMCOM ---
CM Note CM Note Notes: Attempted to meet with patient regarding discharge poc, patient lethargic and unable to participate in conversation. Spoke with patient's sister, Key Ordonez #[phone], about discharge plan. Sister states that patient has recently been at [facility] and did not have a great experience. Sister states patient receives frequent checks at the [facility], medication assistance and ADL help. Sister hopes patient will improve enough to return to the [facility]. CM agreed to follow-up with patient and sister on Tuesday. PASRR complete and in chart should SNF be needed. TEO w/f. Date Signed: 06/14/2017 03:52 PM Electronically Signed By:Renée Carroll RN
--- NOTE | 2017-06-14 17:19 | HOSPPROG ---
Hospitalist Progress Note Assessment/Plan: 76-year-old admitted be secondary to a fall. Patient has known Parkinson's disease dementia and essential hypertension. Today was newly noted that she has a right intertrochanteric fracture and orthopedics has been consulted. I reviewed the x-rays myself and with Radiology and have consulted and spoken with Orthopedics Dr. Chaitanya Torres. -right hip intertrochanteric fracture without displacement of the femoral head. Plan: Consult orthopedics Dr. Chaitanya Torres. -essential hypertension currently in good control -Parkinson's disease: Her medications have been restarted. 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 Currently her medications of only been started on a regular basis again today. Is currently too early to assess the results are regular medication for this problem. -thyroid nodule: TSH is pending -patient is tentatively cleared for surgery. Chest x-ray has been ordered and will be reviewed by myself. Vital signs are stable with normal oxygenation on room air and her heart rate is stable. Blood pressure is in good control. ECG to my reading shows sinus rhythm with multiple atrial pacers, LAFB, no acute changes. Patient is a mild risk of surgery due to age alone. Subjective: No complaints although the patient appears in pain when her right leg is moved in x-rays have been ordered. She is minimally interactive but has not received her Parkinson's medication for approximately 36 hours in all probability. Objective: Vital Signs Temp Pulse Resp BP Pulse Ox 36.9 C 82 18 141/62 H 96 06/14/17 16:00 06/14/17 16:00 06/14/17 16:00 06/14/17 16:00 06/14/17 16:00 Laboratory Results 06/14/17 05:29 06/14/17 05:29 06/13/17 06/14/17 06/15/17 05:59 05:59 05:59 Intake Total 600 Balance 600 - Time Spent With Patient Time Spent with Patient: greater than 35 minutes Time Spent with Patient: Greater than 35 minutes spent on this patients care, greater than 50% of time spent counseling, educating, and coordinating care regarding the above mentioned plan. - Pending Discharge Pending Discharge Within 24 Hours: No Pending Discharge Within 48 Hours: No - Physical Exam Constitutional: no apparent distress, other (Appears in pain when the right leg is moved) Eyes: PERRL, anicteric sclera Ears, Nose, Mouth, Throat: moist mucous membranes, hearing normal Cardiovascular: other (Irregular irregular rhythm without murmur or gallop or elevated JVD) Respiratory: no respiratory distress, no rales or rhonchi, clear to auscultation Gastrointestinal: normoactive bowel sounds, soft, non-tender abdomen, no palpable masses Genitourinary: no bladder fullness Skin: warm Musculoskeletal: other (Tenderness when movement of the right hip and leg is noted. There seems to be swelling about the right knee. X-rays have been reviewed by myself showing intertrochanteric fracture of the right hip. The knee and ankle are normal.) Neurologic: CN II-XII Intact, other (Difficult interact with the patient as she is experiencing significant bradykinesia this. Her underlying dementia is difficult to evaluate) ICD10 Worksheet Patient Problems: Problems Problem Status Onset Fall Acute Right thyroid nodule Acute At risk for falling Acute Cat bite of right foot Acute Cellulitis of right foot Acute
[2017-06-14 20:55] LABS: INR 1.16 (0.83-1.16); PROTIME(PATIENT) 14.8 SEC (12.0-15.0)
[2017-06-15 05:13] LABS: % IMMATURE GRANULYOCYTES 0.6 % (0.0-1.1); ABSOLUTE IMMATURE GRANULOCYTES 0.05 10^3/uL (0.00-0.10); ADD DIFF? NO; ADD MORPH? NO; ADD SCAN? NO; ATYPICAL LYMPHOCYTE FLAG 0 (0-99); FRAGMENT RBC FLAG 0 (0-99); HEMATOCRIT 33.3 % (38.0-47.0); HEMOGLOBIN 11.6 g/dL (12.6-16.3); LEFT SHIFT FLG 0 (0-99); LIPEMIA HEMOLYSIS FLAG 90 (0-99); MEAN CELL HEMOGLOBIN 32.8 pg (27.9-34.1); MEAN CELL HEMOGLOBIN CONCENTR. 34.8 g/dL (32.4-36.7); MEAN CELL VOLUME 94.1 fL (81.5-99.8); MEAN PLATELET VOLUME 10.5 fL (8.7-11.7); PLATELET CLUMPS FLAG 10 (0-99); PLATELET COUNT 151 10^3/uL (150-400); RED BLOOD CELL COUNT 3.54 10^6/uL (4.18-5.33); RED CELL DISTRIBUTION WIDTH 12.8 % (11.5-15.2)
[2017-06-15 05:23] LABS: ANION GAP 5 mEq/L (8-16); CALCIUM 8.5 mg/dL (8.5-10.4); CARBON DIOXIDE 21 mEq/l (22-31); CHLORIDE 108 mEq/L (97-110); CREATININE 0.6 mg/dL (0.6-1.0); GLOMERULAR FILTRATION RATE > 60; GLUCOSE 100 mg/dL (70-100); POTASSIUM 3.7 mEq/L (3.5-5.2); SODIUM 134 mEq/L (134-144)
[2017-06-15] MEDS: ACETAMINOPHEN 325 MG TAB PO PRN (06:46)
[2017-06-15] MEDS: ENOXAPARIN 40 MG/0.4 ML SYR SC SCH (08:56)
[2017-06-15] MEDS: CARBIDOPA/LEVODOPA 10MG/100MG 1 TAB PO SCH ×3 (09:48→23:04)
[2017-06-15] MEDS: GLUCOSAMINE SULF 500 MG CAP PO SCH (09:49)
[2017-06-15] MEDS: CYANO/VITAMIN B12 1000 MCG TAB PO SCH (09:49)
--- NOTE | 2017-06-15 10:31 | HOSPPROG ---
Hospitalist Progress Note Assessment/Plan: 76-year-old admitted be secondary to a fall. Patient has known Parkinson's disease dementia and essential hypertension. patient noted to have intertrochanteric right hip fracture; scheduled for surgery today -right hip intertrochanteric fracture without displacement of the femoral head. Plan: surgery today -essential hypertension currently in good control -Parkinson's disease: Her medications have been restarted. 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 Currently her medications of only been started on a regular basis again today. Is currently too early to assess the results are regular medication for this problem. -thyroid nodule: TSH is pending -patient is tentatively cleared for surgery. Chest x-ray shows no active disease, elevated right hemidiaphragm. Vital signs are stable with normal oxygenation on room air and her heart rate is stable. Blood pressure is in good control. ECG to my reading shows sinus rhythm with multiple atrial pacers , LAFB, no acute changes. Patient is a mild risk of surgery due to age aloneCase discussed with Dr Torres , cleared for surgery. Will continue to follow with you Subjective: slowly responses, reports right hip pain, asking some questions, no c/o chest pain, SOB, abdominal pain Objective: Vital Signs Temp Pulse Resp BP Pulse Ox 37.2 C 83 16 119/64 93 06/15/17 07:49 06/15/17 07:49 06/15/17 07:49 06/15/17 07:49 06/15/17 07:49 Laboratory Results 06/15/17 04:55 06/15/17 04:55 06/14/17 06/15/17 06/16/17 05:59 05:59 05:59 Intake Total 600 2640 Balance 600 2640 PT 14.8 SEC (12.0-15.0) 06/14/17 20:33 INR 1.16 (0.83-1.16) 06/14/17 20:33 - Time Spent With Patient Time Spent with Patient: greater than 35 minutes Time Spent with Patient: Greater than 35 minutes spent on this patients care, greater than 50% of time spent counseling, educating, and coordinating care regarding the above mentioned plan. - Pending Discharge Pending Discharge Within 24 Hours: No Pending Discharge Within 48 Hours: No - Physical Exam Constitutional: no apparent distress Eyes: PERRL, anicteric sclera Ears, Nose, Mouth, Throat: moist mucous membranes, hearing normal Cardiovascular: regular rate and rhythym, no murmur, rub, or gallop, other (JVD is normal, rate at approximately 90) Respiratory: no respiratory distress, no rales or rhonchi, clear to auscultation Gastrointestinal: normoactive bowel sounds, soft, non-tender abdomen, no palpable masses Genitourinary: no bladder fullness Skin: warm Musculoskeletal: generalized weakness Neurologic: CN II-XII Intact Psychiatric: other (slwlo to respond yet appropriate, mostly;resting quietly) ICD10 Worksheet Patient Problems: Problems Problem Status Onset Cat bite of right foot Acute Cellulitis of right foot Acute At risk for falling Acute Fall Acute Right thyroid nodule Acute
[2017-06-15] MEDS ORDERED: BUPIVACAINE 0.5% 30 ML SDV ONE (16:00)
--- NOTE | 2017-06-15 16:22 | PDANEPAE ---
ANE History of Present Illness R intertrochanteric hip fx for TFN ANE Past Medical History - Cardiovascular History Hx Hypertension: Yes - Pulmonary History Hx Oxygen in Use at Home: No Hx Sleep Apnea: No Sleep Apnea Screening Result - Last Documented: Negative - Neurologic History Neurologic History Comment: Parkinsons - Endocrine History Hx Diabetes: No - Chronic Pain History Chronic Pain: No ANE Review of Systems Review of Systems: ANE Patient History - Allergies Allergies/Adverse Reactions: dental meds Allergy (Unknown, Uncoded 04/05/15 19:40) MYCIN Allergy (Uncoded 09/06/16 12:07) - Home Medications Home medications: home medication list seen and reviewed Home Medications: Carbidopa/Levodopa 10/100Mg [Sinemet 10/100 MG (*)] 1 tab PO TID 08/25/15 [Last Taken Unknown] Cyanocobalamin [Vitamin B12 (*)] 1,000 mcg PO DAILY 03/01/17 [Last Taken Unknown ] Glucosamine Sulfate [Glucosamine Sulfate 500 MG (*)] 500 mg PO DAILY 03/01/17 [ Last Taken Unknown] Herbals/Supplements -Info Only 1 ea PO DAILY 03/01/17 [Last Taken Unknown] - NPO status NPO Status: no food or drink >8 hours NPO Since - Liquids (Date): 06/15/17 NPO Since - Liquids (Time): 00:00 NPO Since - Solids (Date): 06/15/17 NPO Since - Solids (Time): 00:00 - Anes Hx Hx Anesthesia Complications (with details): unknown - Smoking Hx Smoking Status: Never smoked - Family Anes Hx Family Hx Anesthesia Complications: unknown ANE Labs/Vital Signs - Labs Result Diagrams: 06/15/17 04:55 06/15/17 04:55 - Vital Signs Blood Pressure: 154/84 Heart Rate: 86 Respiratory Rate: 14 O2 Sat (%): 95 Height: 152.4 cm Weight: 53.5 kg ANE Physical Exam - Airway Neck exam: FROM Mallampati Score: Class 1 Mouth exam: normal dental/mouth exam - Pulmonary Pulmonary: no respiratory distress - Cardiovascular Cardiovascular: regular rate and rhythym - ASA Status ASA Status: III ANE Anesthesia Plan Anesthesia Plan: GA w LMA
[2017-06-15] MEDS ORDERED: ONDANSETRON 4 MG/2 ML VIAL ONE ×2 (16:38→19:18)
[2017-06-15] MEDS ORDERED: LIDOCAINE 2% 100 MG/5 ML SYR ONE (16:38)
[2017-06-15] MEDS ORDERED: DEXAMETHASONE 4 MG/ML VIAL ONE (16:38)
[2017-06-15] MEDS ORDERED: fentaNYL 100 MCG/2 ML INJ ONE (16:39)
[2017-06-15] MEDS ORDERED: PROPOFOL 200 MG/20 ML VIAL ONE (16:39)
[2017-06-15] MEDS: ceFAZolin 2 GM/DEXTROSE 100 ML IV SCH (17:18)
[2017-06-15] MEDS ORDERED: HYDROCODONE/APAP 5/325 TAB PO PRN (17:57)
[2017-06-15] MEDS ORDERED: NALOXONE HCL 0.4 MG/ML INJ IVP PRN (17:57)
[2017-06-15] MEDS ORDERED: OXYCODONE/APAP 5/325 TAB PO PRN (17:57)
[2017-06-15] MEDS ORDERED: MEPERIDINE 25 MG/ML SYR IVP PRN (17:57)
[2017-06-15] MEDS ORDERED: ACETAMINOPHEN 500 MG TAB PO PRN (17:57)
[2017-06-15] MEDS ORDERED: fentaNYL 100 MCG/2 ML INJ IVP PRN (17:57)
[2017-06-15] MEDS ORDERED: DEXAMETHASONE 4 MG/ML VIAL IVP PRN (17:57)
[2017-06-15] MEDS ORDERED: ONDANSETRON 4 MG/2 ML VIAL IVP PRN (17:57)
--- NOTE | 2017-06-15 17:59 | POSTANESTH ---
Post Anesthetic Evaluation Cardiovascular Status: Similar to Pre-Op Cond Respiratory Status: Similar to Pre-op Cond. Level of Consciousness/Mental Status: Can Participate in Eval, Moderately Sleepy Pain Control: Adequate, Prn Tx Ordered Nausea/Vomiting Control: Adequate, Prn Tx Ordered Complications Possibly Related to Anesthesia: None Noted
--- NOTE | 2017-06-15 18:30 | POSTOPPROG ---
Post Op Note Date of Operation: 06/15/17 Surgeon: Chaitanya Torres Anesthesia: GET(General Endotracheal) Pre-op Diagnosis: r PERTROCHANTERIC FEMUR FX Post-op Diagnosis: SAME Procedure: IM FIXATION R PERTROCHANTERIC FEMUR FX (TFN) Inf/Abcess present in the surg proc area at time of surgery?: No EBL: Minimal
[2017-06-15] MEDS: D5W 1/2 NS W/ 20 KCl/L 1,000 ML IV SCH (23:22)
[2017-06-16] MEDS: ceFAZolin 2 GM/DEXTROSE 100 ML IV SCH ×3 (00:44→16:36)
--- NOTE | 2017-06-16 04:04 | GCON ---
[f rep st] CONSULTATION REASON FOR CONSULTATION: Right hip pain. HISTORY OF PRESENT ILLNESS: The patient is a 76-year-old limited household ambulator with assistive devices with history dementia, who presented to the hospital after a fall. She was subsequently diag nosed as having a hip fracture. She denies any previous problems or injuries relative to her hip. PHYSICAL EXAMINATION: On examination, her leg is held in an outwardly rotated position with mild abdoul rtening. There is pain produced with very limited rotation in the lower extremity. Her distal neuro vascular exam is grossly intact. IMAGING DATA: Radiographs of her hip show a right peritrochanteric femur fracture. ASSESSMENT: Right peritrochanteric femur fracture. PLAN: It is recommended that operative treatment consisting of closed reduction, intramedullary nail fixation be performed as soon as patient is medically stable. /[id number]/MODL
--- NOTE | 2017-06-16 06:05 | GOP ---
[f rep st] OPERATIVE REPORT DATE OF OPERATION: 06/13/2017 SURGEON: Chaitanya Torres MD ANESTHESIA: General. PREOPERATIVE DIAGNOSIS: Right peritrochanteric femur fracture. POSTOPERATIVE DIAGNOSIS: Right peritrochanteric femur fracture. PROCEDURE PERFORMED: 1. Closed reduction with intramedullary nail fixation right peritrochanteric femur fracture (TFN). 2. Intraoperative use of fluoroscopy. FINDINGS: ESTIMATED BLOOD LOSS: Minimal. INDICATIONS: Patient is a 76 year old limited household ambulator, who is limping. She sustained a fall, resulting in a right peritrochanteric femur fracture. Based on the displaced unstable nature o f the injury it was recommended that operative treatment consisting of intramedullary nail fixation b e pursued. The patient and her sister, who serves as her guardian, were informed of the potential ri sks of the operation, including, but not limited to, bleeding, infection, neurovascular damage, loss of limb or infection, malunion to nonunion, need for hardware removal, pain or functional limitations despite operative treatment, and anesthetic risks. They acknowledged they understood the potential risks of the planned procedure, and postoperative plan well, and had all questions answered. Her sis ter gave verbal consent. DESCRIPTION OF PROCEDURE: Patient was brought in the operating room, where general anesthetic was ad ministered. IV antibiotics were administered. The patient was transferred to the traction fracture table. Right leg was placed in a well-padded traction boot. Her left leg placed in a well-padded we ll leg duque. Closed reduction was performed and fracture position confirmed to be favorable fluoro scopically. The right thigh and hip were prepped and draped in standard sterile fashion. A longitud inal incision was made along the lateral aspect of the proximal thigh, proximal to the greater trocha nter. Dissection was carried through the fascia layer with hemostat. A guide pin from the [employer], trochanteric fixation nail was placed at the tip of the greater trochanter and advanced down the intr amedullary canal. Guide pin position was confirmed fluoroscopically to be favorable. The alessandra lyons eamer was then utilized to create a trough for nail placement. An 11 mm diameter by 130 degrees angl e trochanteric fixation nail was passed manually down the intramedullary canal. Using the aiming gu chloe for the spiral blade, a guide pin was placed down the central aspect of the femoral neck and head , getting final positioning less than a centimeter from the tip of the femoral head, both on AP and lateral planes and being centered. The step drill was used to create a trough for the spiral blade. Then the spiral blade was impacted into place. The blade was locked proximally and a distal locking bolt was placed. Fluoroscopic views confirmed favorable reduction and implant placement. Attention was directed towards closure. Subcutaneous tissue was closed with 3-0 Vicryl suture. The skin was closed with skin mindy. 0.5% Marcaine without epinephrine was injected in the wound sites . The wounds were dressed with sterile Adaptic, 4x4s and ABD. The patient tolerated the procedure w ell and was taken to the recovery room, extubated, in stable condition postoperatively. All sponge, needle, and instrument counts were reported to be correct. DRAINS: None. COMPLICATIONS: None. PLAN: The patient will be admitted for medical management. She will be weightbearing as tolerated o n her operative extremity. /[id number]/MODL
[2017-06-16] MEDS: CARBIDOPA/LEVODOPA 10MG/100MG 1 TAB PO SCH ×2 (08:59→16:36)
[2017-06-16] MEDS: CYANO/VITAMIN B12 1000 MCG TAB PO SCH (09:00)
[2017-06-16] MEDS: ACETAMINOPHEN 325 MG TAB PO PRN ×2 (09:06→13:52)
[2017-06-16 09:23] LABS: ANION GAP 9 mEq/L (8-16); CALCIUM 8.6 mg/dL (8.5-10.4); CARBON DIOXIDE 21 mEq/l (22-31); CHLORIDE 105 mEq/L (97-110); CREATININE 0.6 mg/dL (0.6-1.0); GLOMERULAR FILTRATION RATE > 60; GLUCOSE 118 mg/dL (70-100); POTASSIUM 4.2 mEq/L (3.5-5.2); SODIUM 135 mEq/L (134-144)
[2017-06-16 09:24] LABS: % IMMATURE GRANULYOCYTES 0.2 % (0.0-1.1); ABSOLUTE IMMATURE GRANULOCYTES 0.02 10^3/uL (0.00-0.10); ADD DIFF? NO; ADD MORPH? NO; ADD SCAN? NO; ATYPICAL LYMPHOCYTE FLAG 0 (0-99); FRAGMENT RBC FLAG 0 (0-99); HEMATOCRIT 35.4 % (38.0-47.0); HEMOGLOBIN 12.2 g/dL (12.6-16.3); LEFT SHIFT FLG 10 (0-99); LIPEMIA HEMOLYSIS FLAG 90 (0-99); MEAN CELL HEMOGLOBIN 32.5 pg (27.9-34.1); MEAN CELL HEMOGLOBIN CONCENTR. 34.5 g/dL (32.4-36.7); MEAN CELL VOLUME 94.4 fL (81.5-99.8); MEAN PLATELET VOLUME 10.3 fL (8.7-11.7); PLATELET CLUMPS FLAG 10 (0-99); PLATELET COUNT 209 10^3/uL (150-400); RED BLOOD CELL COUNT 3.75 10^6/uL (4.18-5.33); RED CELL DISTRIBUTION WIDTH 12.9 % (11.5-15.2)
[2017-06-16] MEDS ORDERED: LIDOCAINE 1% 300 MG/30 ML SDV ONE (11:06)
--- NOTE | 2017-06-16 11:41 | HOSPPROG ---
Hospitalist Progress Note Assessment/Plan: 76-year-old admitted be secondary to a fall. Patient has known Parkinson's disease dementia and essential hypertension. patient noted to have intertrochanteric right hip fracture; Operative repair 06/15. Patient reports some pain -right hip intertrochanteric fracture without displacement of the femoral head. Plan: post op care; lovenox for DVT -essential hypertension currently in good control -constipation (new problem): disempacted and on bowel care protocol -Parkinson's disease: Her medications have been restarted. 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 Restarted her usual medication and have increased the sinemet to qid. Patient seems to have bradykinesis -thyroid nodule: TSH pending: patient refused biopsy. Disposition: probably [facility] tomorrow; Discussed with Dr Gonzalez and Yolanda Subjective: alert and slowly responsive. c/o constipation Objective: Vital Signs Temp Pulse Resp BP Pulse Ox 36.9 C 88 16 111/51 L 96 06/16/17 08:00 06/16/17 08:00 06/16/17 08:00 06/16/17 08:00 06/16/17 08:00 Laboratory Results 06/16/17 08:57 06/16/17 08:57 06/15/17 06/16/17 06/17/17 05:59 05:59 05:59 Intake Total 2640 700 Output Total 450 Balance 2640 250 PT 14.8 SEC (12.0-15.0) 06/14/17 20:33 INR 1.16 (0.83-1.16) 06/14/17 20:33 Laboratory Tests 06/13/17 06/14/17 06/16/17 09:54 05:29 08:57 Hgb 12.2 L Procalcitonin 0.08 TSH 1.660 - Time Spent With Patient Time Spent with Patient: greater than 35 minutes Time Spent with Patient: Greater than 35 minutes spent on this patients care, greater than 50% of time spent counseling, educating, and coordinating care regarding the above mentioned plan. - Pending Discharge Pending Discharge Within 24 Hours: Yes Pending Discharge Date: 06/17/17 Pending Discharge Time: 11:00 - Physical Exam Constitutional: no apparent distress Eyes: PERRL Ears, Nose, Mouth, Throat: moist mucous membranes Cardiovascular: regular rate and rhythym, no murmur, rub, or gallop Respiratory: no respiratory distress, no rales or rhonchi, clear to auscultation Gastrointestinal: normoactive bowel sounds, soft, non-tender abdomen, no palpable masses Skin: warm Musculoskeletal: generalized weakness Neurologic: CN II-XII Intact ICD10 Worksheet Patient Problems: Problems Problem Status Onset Fall Acute Right thyroid nodule Acute At risk for falling Acute Cat bite of right foot Acute Cellulitis of right foot Acute
[2017-06-16] MEDS: GLUCOSAMINE SULF 500 MG CAP PO SCH (11:54)
--- NOTE | 2017-06-16 15:06 | ASMTCMCOM ---
CM Note CM Note Notes: Referral for SNF made, spoke with [facility] regarding family conversations for preference facilities in light of diagnosis, surgery and pending need for SNF. Met with patient and her friend. Information given regarding facilities. CM encouraged friend to look at facilities to help make decision, patient is adamant about private room, [facility] (Both able to [facility]). Friend and patient to notify CM with final decision. Date Signed: 06/16/2017 03:05 PM Electronically Signed By:Renée Carroll RN
[2017-06-16] MEDS ORDERED: MAGNESIUM HYDROXIDE 30 ML UDCUP PO PRN (15:26)
[2017-06-16] MEDS ORDERED: LACTULOSE 20 GM/30 ML UDCUP PO PRN (15:26)
[2017-06-16] MEDS ORDERED: BISACODYL 10 MG SUPP PR PRN (15:26)
[2017-06-16] MEDS ORDERED: POLYETHYLENE GLYCOL 3350 17 GM PKT PO PRN (15:26)
--- NOTE | 2017-06-16 15:30 | HOSPPROG ---
Hospitalist Progress Note Assessment/Plan: 76-year-old admitted be secondary to a fall. Patient has known Parkinson's disease dementia and essential hypertension. patient noted to have intertrochanteric right hip fracture; scheduled for surgery today -right hip intertrochanteric fracture without displacement of the femoral head. Plan: surgery today -essential hypertension currently in good control -Parkinson's disease: Her medications have been restarted. 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 Currently her medications of only been started on a regular basis again today. Is currently too early to assess the results are regular medication for this problem. -thyroid nodule: TSH is pending -patient is tentatively cleared for surgery. Chest x-ray shows no active disease, elevated right hemidiaphragm. Vital signs are stable with normal oxygenation on room air and her heart rate is stable. Blood pressure is in good control. ECG to my reading shows sinus rhythm with multiple atrial pacers , LAFB, no acute changes. Patient is a mild risk of surgery due to age aloneCase discussed with Dr Torres , cleared for surgery. Will continue to follow with you Objective: Vital Signs Temp Pulse Resp BP Pulse Ox 36.9 C 79 16 133/58 H 99 06/16/17 11:46 06/16/17 11:46 06/16/17 11:46 06/16/17 11:46 06/16/17 11:46 Laboratory Results 06/16/17 08:57 06/16/17 08:57 06/15/17 06/16/17 06/17/17 05:59 05:59 05:59 Intake Total 2640 700 Output Total 450 Balance 2640 250 PT 14.8 SEC (12.0-15.0) 06/14/17 20:33 INR 1.16 (0.83-1.16) 06/14/17 20:33 ICD10 Worksheet Patient Problems: Problems Problem Status Onset Cat bite of right foot Acute Cellulitis of right foot Acute At risk for falling Acute Fall Acute Right thyroid nodule Acute
[2017-06-16] MEDS ORDERED: CARBIDOPA/LEVODOPA 10MG/100MG 1 TAB PO SCH (16:00)
[2017-06-16] MEDS: ENOXAPARIN 40 MG/0.4 ML SYR SC SCH (16:35)
[2017-06-16] MEDS: SENNOSIDES/DOCUSATE SODIUM TAB PO SCH (21:20)
[2017-06-17] MEDS: ceFAZolin 2 GM/DEXTROSE 100 ML IV SCH ×2 (01:27→09:32)
[2017-06-17] MEDS: D5W 1/2 NS W/ 20 KCl/L 1,000 ML IV SCH (04:06)
[2017-06-17 05:04] LABS: % IMMATURE GRANULYOCYTES 0.4 % (0.0-1.1); ABSOLUTE IMMATURE GRANULOCYTES 0.03 10^3/uL (0.00-0.10); ADD DIFF? NO; ADD MORPH? NO; ADD SCAN? NO; ATYPICAL LYMPHOCYTE FLAG 0 (0-99); FRAGMENT RBC FLAG 0 (0-99); HEMATOCRIT 31.6 % (38.0-47.0); HEMOGLOBIN 10.7 g/dL (12.6-16.3); LEFT SHIFT FLG 10 (0-99); LIPEMIA HEMOLYSIS FLAG 90 (0-99); MEAN CELL HEMOGLOBIN 32.3 pg (27.9-34.1); MEAN CELL HEMOGLOBIN CONCENTR. 33.9 g/dL (32.4-36.7); MEAN CELL VOLUME 95.5 fL (81.5-99.8); MEAN PLATELET VOLUME 10.1 fL (8.7-11.7); PLATELET CLUMPS FLAG 10 (0-99); PLATELET COUNT 211 10^3/uL (150-400); RED BLOOD CELL COUNT 3.31 10^6/uL (4.18-5.33); RED CELL DISTRIBUTION WIDTH 12.9 % (11.5-15.2)
[2017-06-17 05:31] LABS: ALANINE AMINOTRANSFERASE 36 IU/L (9-52); ALBUMIN 2.6 g/dL (3.5-5.0); ALKALINE PHOSPHATASE 63 IU/L (38-126); ANION GAP 6 mEq/L (8-16); ASPARTATE AMINOTRANSFERASE 35 IU/L (14-46); BILIRUBIN,TOTAL 0.8 mg/dL (0.1-1.4); CALCIUM 8.4 mg/dL (8.5-10.4); CARBON DIOXIDE 24 mEq/l (22-31); CHLORIDE 105 mEq/L (97-110); CREATININE 0.7 mg/dL (0.6-1.0); GLOMERULAR FILTRATION RATE > 60; GLUCOSE 111 mg/dL (70-100); SODIUM 135 mEq/L (134-144); TOTAL PROTEIN 4.8 g/dL (6.3-8.2)
[2017-06-17] MEDS: CARBIDOPA/LEVODOPA 10MG/100MG 1 TAB PO SCH ×3 (06:34→18:09)
[2017-06-17] MEDS: ACETAMINOPHEN 325 MG TAB PO PRN ×2 (07:18→14:34)
[2017-06-17] MEDS: ENOXAPARIN 40 MG/0.4 ML SYR SC SCH (08:55)
[2017-06-17] MEDS: CYANO/VITAMIN B12 1000 MCG TAB PO SCH (08:55)
[2017-06-17] MEDS: SENNOSIDES/DOCUSATE SODIUM TAB PO SCH ×2 (08:56→22:08)
[2017-06-17] MEDS: GLUCOSAMINE SULF 500 MG CAP PO SCH (09:52)
--- NOTE | 2017-06-17 12:25 | HOSPPROG ---
Hospitalist Progress Note Assessment/Plan: #Somnolence: ddx infection, vs. Parkinson's. Unclear if was dosing meds correctly. Afebrile. No leukocytosis, neg procalcitonin. Not on central-acting meds. #Right hip fracture: closed reduction with nail fixation 06/15 #Parkinson's disease: per friends, not at baseline. Does not take med consistently. More somnolent today. Resumed on home meds. No signs of infection , no focal deficits. Would allow med trial for next day #Thyroid nodule: normal TSH. Can biopsy outpatient #Sepsis: resolved. UA, CXR negative. Procalcitonin NL. #Acute blood loss anemia: suspected with surgery. H/H stable #Diet: reg #DVT ppx: Lovenox #Disp: transfer to [facility] once clinically improved Subjective: very somnolent today Objective: Vital Signs Temp Pulse Resp BP Pulse Ox 37.1 C 82 12 105/46 L 98 06/17/17 11:35 06/17/17 11:35 06/17/17 11:35 06/17/17 11:35 06/17/17 11:35 Laboratory Results 06/17/17 04:23 06/17/17 04:23 06/16/17 06/17/17 06/18/17 05:59 05:59 05:59 Intake Total 700 900 Output Total 450 700 200 Balance 250 200 -200 PT 14.8 SEC (12.0-15.0) 06/14/17 20:33 INR 1.16 (0.83-1.16) 06/14/17 20:33 - Physical Exam Constitutional: no apparent distress, other (hard to arouse, awakes with sternal rub) Ears, Nose, Mouth, Throat: moist mucous membranes Cardiovascular: regular rate and rhythym, no murmur, rub, or gallop Respiratory: no respiratory distress, no rales or rhonchi Gastrointestinal: normoactive bowel sounds, soft, non-tender abdomen Genitourinary: no bladder fullness Skin: warm Musculoskeletal: other (right surgical incision site CDI) Neurologic: AAOx3, CN II-XII Intact (very somnolent, answers questions briefly and then falls back to sleep), other Psychiatric: flat affect ICD10 Worksheet Patient Problems: Problems Problem Status Onset Cat bite of right foot Acute Cellulitis of right foot Acute At risk for falling Acute Fall Acute Right thyroid nodule Acute
--- NOTE | 2017-06-17 13:15 | SOAPPROG ---
SOAP Progress Note Assessment/Plan: Assessment: S/P R TFN Slow progress with PT Pain tolerable Limb lengths equal Distal NVI Mild pain with hip flexion/extension Plan: OOB/PT OK for D/C from Ortho standpoint when medically stable 06/17/17 13:13 Objective: Vital Signs Temp Pulse Resp BP Pulse Ox 37.1 C 82 12 105/46 L 98 06/17/17 11:35 06/17/17 11:35 06/17/17 11:35 06/17/17 11:35 06/17/17 11:35 Laboratory Results 06/17/17 04:23 06/17/17 04:23 06/16/17 06/17/17 06/18/17 05:59 05:59 05:59 Intake Total 700 900 Output Total 450 700 200 Balance 250 200 -200 PT 14.8 SEC (12.0-15.0) 06/14/17 20:33 INR 1.16 (0.83-1.16) 06/14/17 20:33 ICD10 Worksheet Patient Problems: Problems Problem Status Onset Fall Acute Right thyroid nodule Acute At risk for falling Acute Cat bite of right foot Acute Cellulitis of right foot Acute
--- NOTE | 2017-06-17 16:14 | ASMTCMCOM ---
CM Note CM Note Notes: Spoke with patient's sister Key Ordonez, she would prefer [facility]. Provided Key Ordonez with surgeons contact information. Updated friend Shelly. Spoke to Dr. Shaikh nurse regarding sister's request for records. [facility] ready to accept when medically cleared. CM to follow as need arises. Date Signed: 06/17/2017 04:13 PM Electronically Signed By:Lorraine Aldridge RN
[2017-06-18] MEDS: D5W 1/2 NS W/ 20 KCl/L 1,000 ML IV SCH (02:19)
[2017-06-18 04:13] VITALS: RESP 16
[2017-06-18] MEDS: CARBIDOPA/LEVODOPA 10MG/100MG 1 TAB PO SCH ×2 (06:25→11:59)
[2017-06-18 07:49] LABS: HEMATOCRIT 31.6 % (38.0-47.0); HEMOGLOBIN 10.5 g/dL (12.6-16.3); MEAN CELL HEMOGLOBIN CONCENTR. 33.2 g/dL (32.4-36.7); MEAN CELL VOLUME 96.3 fL (81.5-99.8); RED BLOOD CELL COUNT 3.28 10^6/uL (4.18-5.33); RED CELL DISTRIBUTION WIDTH 13.1 % (11.5-15.2)
[2017-06-18] MEDS: GLUCOSAMINE SULF 500 MG CAP PO SCH (08:15)
[2017-06-18] MEDS: SENNOSIDES/DOCUSATE SODIUM TAB PO SCH (08:16)
[2017-06-18] MEDS: ENOXAPARIN 40 MG/0.4 ML SYR SC SCH (08:16)
[2017-06-18] MEDS: CYANO/VITAMIN B12 1000 MCG TAB PO SCH (08:16)
[2017-06-18 08:24] VITALS: BP 115/67; PULSE 81; TEMP 99.7; O2SAT 93
[2017-06-18] MEDS: ACETAMINOPHEN 325 MG TAB PO PRN (08:25)
--- NOTE | 2017-06-18 09:03 | PDIAF ---
- Diagnosis Diagnosis: hip fracture Code Status: Full Code - Medication Management Discharge Medications: Medications to Continue on Transfer Carbidopa/Levodopa 10/100Mg [Sinemet 10/100 MG (*)] 1 tab PO TID 08/25/15 [Last Taken Unknown] Cyanocobalamin [Vitamin B12 (*)] 1,000 mcg PO DAILY 03/01/17 [Last Taken Unknown ] Glucosamine Sulfate [Glucosamine Sulfate 500 MG (*)] 500 mg PO DAILY 03/01/17 [ Last Taken Unknown] Herbals/Supplements -Info Only 1 ea PO DAILY 03/01/17 [Last Taken Unknown] Acetaminophen [Tylenol 325mg (*)] 650 mg PO Q4HRS PRN #0 tab 03/04/17 [Last Taken Unknown] Enoxaparin [Lovenox 40 MG (*)] 40 mg SC DAILY #14 syr 06/18/17 [Last Taken Unknown] Discharge Medications: Refer to the Discharge Home Medication list for PRN reason. - Orders Services needed: Physical Therapy, Occupational Therapy, Speech Language Pathologist Diet Recommendation: no restrictions on diet Diet Texture: Dysphagia 2 - Mechanically Altered - Chopped, Ground, [place] Thick Liquids, Meds Crushed in Puree Additional: Lovenox for 14 days then stop - Follow Up Care Current Providers and Referrals: Nichol Mulligan MD [Primary Care Provider] - As per Instructions
--- NOTE | 2017-06-18 10:23 | SOAPPROG ---
SOAP Progress Note Assessment/Plan: Assessment: S/P R TFN Slow progress with PT Pain tolerable Limb lengths equal Distal NVI Mild pain with hip flexion/extension Plan: OOB/PT OK for D/C from Ortho standpoint when medically stable 06/17/17 13:13 06/18/17 10:21 No hip pain elver diet slow progress with pt dressing intact no D/C OK for D/C from ortho [place] f/u 1 month Objective: Vital Signs Temp Pulse Resp BP Pulse Ox 37.6 C 81 16 115/67 93 06/18/17 08:00 06/18/17 08:00 06/18/17 08:00 06/18/17 08:00 06/18/17 08:00 Laboratory Results 06/18/17 06:57 06/17/17 04:23 06/17/17 06/18/17 06/19/17 05:59 05:59 05:59 Intake Total 900 800 Output Total 700 200 Balance 200 600 PT 14.8 SEC (12.0-15.0) 06/14/17 20:33 INR 1.16 (0.83-1.16) 06/14/17 20:33 ICD10 Worksheet Patient Problems: Problems Problem Status Onset Fall Acute Right thyroid nodule Acute At risk for falling Acute Cat bite of right foot Acute Cellulitis of right foot Acute
--- NOTE | 2017-06-18 10:25 | PDIAF ---
- Diagnosis Diagnosis: hip fracture Code Status: Full Code - Medication Management Discharge Medications: Medications to Continue on Transfer Carbidopa/Levodopa 10/100Mg [Sinemet 10/100 MG (*)] 1 tab PO TID 08/25/15 [Last Taken Unknown] Cyanocobalamin [Vitamin B12 (*)] 1,000 mcg PO DAILY 03/01/17 [Last Taken Unknown ] Glucosamine Sulfate [Glucosamine Sulfate 500 MG (*)] 500 mg PO DAILY 03/01/17 [ Last Taken Unknown] Herbals/Supplements -Info Only 1 ea PO DAILY 03/01/17 [Last Taken Unknown] Acetaminophen [Tylenol 325mg (*)] 650 mg PO Q4HRS PRN #0 tab 03/04/17 [Last Taken Unknown] Enoxaparin [Lovenox 40 MG (*)] 40 mg SC DAILY #14 syr 06/18/17 [Last Taken Unknown] Discharge Medications: Refer to the Discharge Home Medication list for PRN reason. - Orders Services needed: Physical Therapy, Occupational Therapy, Speech Language Pathologist Diet Recommendation: no restrictions on diet Diet Texture: Dysphagia 2 - Mechanically Altered - Chopped, Ground, [place] Thick Liquids, Meds Crushed in Puree Wound Care Instructions: keep incision and dressing clean, dry, intact Sutures/Janny Site: R thigh Date to Remove Sutures/[place]: 06/27/17 Activity/Weight Bearing Restrictions: WBAT Additional: Lovenox for 14 days then stop - Follow Up Care Current Providers and Referrals: Nichol Mulligan MD [Primary Care Provider] - As per Instructions
--- NOTE | 2017-06-18 10:58 | ASDISCHSUM ---
Discharge Information Plan Status:SNF Medically Cleared to Leave: Discharge Date: D/C Disposition: ADT D/C Disposition:Halfway Facility Projected Discharge Date:06/18/2017 11:00 AM Transportation at D/C: Discharge Delay Reason: Follow-Up Date:06/18/2017 11:00 AM Discharge Slot: Final Diagnosis: Placement Information Referral Type:*Fpc/SNF Referral ID:[id number] Provider Name:[facility] Address 1:[address] Address 2: City:[place] Selection Factors: State:[place] Patient Contact Information Contact Name:RUDI Relationship:Sister Address:[address] City:[facility] Alternate Phone: State/Zip Code:[place] [address] Email: Financial Information Financial Class: Primary Plan Desc:MEDICARE INPATIENT Primary Plan Number:[id number] Secondary Plan Desc:[facility] Secondary Plan Number:[id number] Assessment Information [facility] Progress Note CM Note CM Note Notes: Patient was found down at her apartment after having a fall. It is unclear if patient lost consciousness or how long she was down on the floor. Patient recently diagnosed with Parkinsons and takes Sinemet. Patient's movements are rigid and appears stiff. There is concern whether patient should have her medications administered/monitored. Patient currently lives in independent living at [facility] ([phone]) and she would prefer to return there. If discharge recommendations are for patient to go to a SNF, the patient and her sister specifically do not want her to go to [facility]. Patient normally uses a walker to ambulate but has had frequent mechanical falls. Patient's sister, Key Trimble ([phone]) is patient's POA and is in [place]. Patient's PCP is Nichol Mulligan. Exact DC needs unknown at this time, CM to follow. Date Signed: 06/13/2017 06:24 PM Electronically Signed By:Maria Teresa Jean RN [facility] Progress Note CM Note CM Note Notes: Attempted to meet with patient regarding discharge poc, patient lethargic and unable to participate in conversation. Spoke with patient's sister, Key Ordonez #[phone], about discharge plan. Sister states that patient has recently been at [facility] and did not have a great experience. Sister states patient receives frequent checks at the [facility], medication assistance and ADL help. Sister hopes patient will improve enough to return to the [place] with [facility]. CM agreed to follow-up with patient and sister on Tuesday. PASRR complete and in chart should SNF be needed. CM w/f. Date Signed: 06/14/2017 03:52 PM Electronically Signed By:Renée Carroll RN [facility] Progress Note CM Note CM Note Notes: Referral for SNF made, spoke with [address] [place] [address] regarding family conversations for preference facilities in light of diagnosis, surgery and pending need for SNF. Met with patient and her friend. Information given regarding facilities. CM encouraged friend to look at facilities to help make decision, patient is adamant about private room, deciding between [facility] and [facility] (Both able to accept). Friend and patient to notify CM with final decision. Date Signed: 06/16/2017 03:05 PM Electronically Signed By:Renée Carroll RN [facility] CM Progress Note CM Note CM Note Notes: Spoke with patient's sister Key Ordonez, she would prefer [facility]. Provided Key Ordonez with surgeons contact information. Updated friend Shelly. Spoke to Dr. Shaikh nurse regarding sister's request for records. [facility] ready to accept when medically cleared. CM to follow as need arises. Date Signed: 06/17/2017 04:13 PM Electronically Signed By:Lorraine Aldridge RN Intervention Information Intervention Type:*Incorrect Registration Date of Service:06/13/2017 03:07 PM Patient Type:Observation Staff Member:Faith Galicia Hours: Discipline: Severity: Comment: Intervention Type:*IM-Signed Date of Service:06/17/2017 10:22 AM Patient Type:Inpatient Staff Member:Gabbie Lacey Hours: Discipline: Severity: Comment:
--- NOTE | 2017-06-18 11:01 | ASMTCMCOM ---
CM Note CM Note Notes: Pt is ready to Dc to [facility] today. [facility] stretcher transport arranged for 1:00. Final orders faxed. MARITZA Carver has RN report #. Spoke with pt's sister Key Ordonez in [place]. She expressed concerns that pt may not be able to return to her apt at the [facility]. Let [facility] know her concerns. They will work with Shiela and Ginny at the [facility] to arrange the best plan after DC from [facility]. Date Signed: 06/18/2017 11:01 AM Electronically Signed By:Mireille Lyles LCSW
[2017-06-18] MEDS ORDERED: FLU VACC QS 2017-18 (3YR+)/PF 0.5 ML SYR (FLUARIX QUAD) IM ONE (11:28)
[2017-06-18] MEDS ORDERED: PNEUMOC 13-VAL CONJ-DIP CRM/PF 0.5 ML SYR IM ONE (11:31)
--- NOTE | 2017-06-18 23:28 | GDS ---
[f rep st] DISCHARGE SUMMARY DISCHARGE DIAGNOSES: 1. Acute right hip fracture. 2. Parkinson disease. 3. Dementia. 4. Thyroid nodule. Needs outpatient followup. 5. Metabolic encephalopathy. HISTORY: The patient is a 76-year-old female who fell at home and broke her hip. On presentation, s he was very stiff and it appeared she had not been taking her Parkinson's medication properly. There was some question of dementia and her ability to self-administer medications. She underwent surgery with Dr. Torres and had a successful closed reduction with intramedullary nail fixation of her right femur fracture. Postoperatively, she did have some prolonged episodes of confusion and altered ment al status, although on the day of discharge her mental status is actually quite good and I query to w hat degree her dementia really is at baseline. Plan [place] [facility] [place] [facility] [place] further rehabilitation and potentially she could return to independent living with some increased s upport. DISCHARGE MEDICATIONS: Please see computer record for full detailed list. New medications: Lovenox 40 mg subcu daily for 14 days. ADDITIONAL DISCHARGE INSTRUCTIONS: 1. Outpatient followup needed regarding incidentally noted thyroid nodule on carotid ultrasounds. 2. Weightbearing as tolerated. 3. Keep incision clean, dry, and intact. 4. Ongoing dysphagia, treated with speech therapy. Current diet at discharge is dysphagia 2 with ne ctar-thick liquids. Greater than 30 minutes' time was spent arranging this discharge. Patient seen and examined by me on the day of discharge. /[id number]/MODL
== END 2017-06-18 12:48 | DRG 480 ==
LOC: EDUNIT# → OBSVTOIN 12:46 → F3E 13:04 → F3N 06-15 17:30
PROVIDERS: ADMIT Internal Medicine Pulmonary Disease; ATTEND Internal Medicine Pulmonary Disease
PROC: 0QH606Z Insertion of Intramedullary Internal Fixation Device into Right Upper Femur, Open Approach (ICD-10-PCS; principal; 2017-06-13)
PROC: 0QS63ZZ Reposition Right Upper Femur, Percutaneous Approach (ICD-10-PCS; principal; 2017-06-13)
DX: S72.141A Displaced intertrochanteric fracture of right femur, initial encounter for closed fracture (principal); D62 Acute posthemorrhagic anemia; A41.9 Sepsis, unspecified organism; G93.41 Metabolic encephalopathy; W01.0XXA Fall on same level from slipping, tripping and stumbling without subsequent striking against object, initial encounter; Y92.199 Unspecified place in other specified residential institution as the place of occurrence of the external cause; G31.83 Neurocognitive disorder with Lewy bodies; F02.80 Dementia in other diseases classified elsewhere, unspecified severity, without behavioral disturbance, psychotic disturbance, mood disturbance, and anxiety; K59.00 Constipation, unspecified; R13.10 Dysphagia, unspecified; E04.1 Nontoxic single thyroid nodule; I10 Essential (primary) hypertension
CPT/HCPCS: 92526-GN; 92610-GN; 97110-GP; 97116-GP; 97162-GP; 97166-GO; 97530-GO; 97530-GP; 97535-GO; C1713; C1769; G8978-GP-CL; G8979-GP-CJ; G8980-GP-CK; G8987-GO-CM; G8988-GO-CK; G8996-GN-CK; G8997-GN-CJ; G8998-GN-CJ; J0690; J1100; J1650; J2001; J2405; J2704; J3010

== ENCOUNTER 2018-03-13 22:27 | Inpatient (IN) | payer OTHER ==
--- NOTE | 2018-03-13 22:29 | EDPHY ---
H & P Time Seen by Provider: 03/13/18 22:29 HPI/ROS: HPI CHIEF COMPLAINT: Right hip pain fall. HISTORY OF PRESENT ILLNESS: Patient is a 77-year-old female she resides at [facility], she has a history of dementia she presents emergency room by EMS for right hip pain. She thinks she may have fell but does not recall the events. And the staff there did not witness any fall. However it is possible she fell couple hours ago landing on her right hip she complains of right hip pain. There was no witnessed any of this. She is to staff called 911 due to ongoing right hip pain. She describes 6/10 right hip pain. Past Medical History: Dementia Past Surgical History: No recent surgical history Social History: Resides at [facility] Family History: Noncontributory ROS REVIEW OF SYSTEMS: A comprehensive 10 point review of systems is otherwise negative aside from elements mentioned in the history of present illness. Exam Constitutional elderly, frail triage nursing summary reviewed, vital signs reviewed, awake/alert. Eyes normal conjunctivae and sclera, EOMI, PERRLA. HENT normal inspection, atraumatic, moist mucus membranes, no epistaxis, neck supple/ no meningismus, no raccoon eyes. Respiratory clear to auscultation bilaterally, normal breath sounds, no respiratory distress, no wheezing. Cardiovascular rate normal, regular rhythm, no murmur, no edema, distal pulses normal. Gastrointestinal soft, non-tender, no rebound, no guarding, normal bowel sounds, no distension, no pulsatile mass. Genitourinary no CVA tenderness. Musculoskeletal right leg is externally rotated and shortened, does have good distal pulse and warm extremity, she has tender palpation over the right lateral hip, with any range of motion causes her discomfort. no midline vertebral tenderness, full range of motion, no calf swelling, no tenderness of extremities, no meningismus, good pulses, neurovascularly intact. Skin pink, warm, & dry, no rash, skin atraumatic. Neurologic awake, alert and oriented x 3, AAOx3, moves all 4 extremities equally, motor intact, sensory intact, CN II-XII intact, normal cerebellar, normal vision, normal speech. Psychiatric normal mood/affect. Heme/Lymph/Immune no lymphadenopathy. Differential Diagnosis: Includes but is not limited to in a particular order: Right hip contusion, right hip fracture, femur fracture, fall, soft tissue injury Medical Decision Making: Plan for this patient, basic blood work, x-ray right hip. Re-evaluation: Source: Patient, EMS - Personal History Tetanus Vaccine Date: < 10 YEARS - Medical/Surgical History Hx Asthma: No Hx Chronic Respiratory Disease: No Hx Diabetes: No Hx Cardiac Disease: No Hx Renal Disease: No Hx Cirrhosis: No Hx Alcoholism: No Hx HIV/AIDS: No Hx Splenectomy or Spleen Trauma: No Other PMH: PMHx: Parkinson's. PSHx: - Social History Smoking Status: Never smoked Constitutional: Initial Vital Signs Temperature (C) 36.6 C 03/13/18 22:30 Heart Rate 92 03/13/18 22:30 Respiratory Rate 18 03/13/18 22:30 Blood Pressure 138/75 H 03/13/18 22:30 O2 Sat (%) 95 03/13/18 22:30 O2 Delivery Mode Room Air Allergies/Adverse Reactions: streptomycin Allergy (Verified 03/13/18 22:39) dental meds Allergy (Unknown, Uncoded 03/13/18 22:36) MYCIN Allergy (Uncoded 03/13/18 22:36) Home Medications: Medication Instructions Recorded Cyanocobalamin [Vitamin B12 (*)] 1,000 mcg PO DAILY 03/01/17 Magnesium Hydroxide [Milk of 400 mg PO Q2D PRN 03/13/18 Magnesia] Acetaminophen [Tylenol 325mg (*)] 650 mg PO BID 03/15/18 Carbidopa/Levodopa 1.5 each PO QID@06,10,14,18 03/15/18 [Carbidopa-Levodopa 25-100 Tab] Folic Acid 0.8 mg PO DAILY 03/15/18 Medical Decision Making - Data Points Medications Given: Acetaminophen (Tylenol) 650 mg PO Q4HRS PRN PRN Reason: Pain, Mild/Fever, Can Take PO Stop: 09/09/18 23:34 Last Admin: 03/14/18 00:20 Dose: 650 mg Departure - Departure Disposition: [facility] Acute Clinical Impression: Fall Qualifiers: Encounter type: initial encounter Qualified Code(s): W19.XXXA - Unspecified fall, initial encounter Hip fracture Qualifiers: Encounter type: initial encounter Fracture type: closed Laterality: right Qualified Code(s): S72.001A - Fracture of unspecified part of neck of right femur, initial encounter for closed fracture Pelvis fracture Qualifiers: Encounter type: initial encounter Pelvic bone location: multiple parts Fracture type: closed Fracture alignment: without disruption of pelvic ring Qualified Code(s): S32.82XA - Multiple fractures of pelvis without disruption of pelvic ring, initial encounter for closed fracture Condition: Fair
[2018-03-13 23:31] LABS: PLATELET COUNT 153 10^3/uL (150-400)
[2018-03-13] MEDS ORDERED: ACETAMINOPHEN 325 MG TAB PO PRN (23:35)
[2018-03-13] MEDS ORDERED: ONDANSETRON 4 MG/2 ML VIAL IVP PRN (23:35)
[2018-03-13 23:38] LABS: INR 0.99 (0.83-1.16)
[2018-03-13 23:59] LABS: PROTIME(PATIENT) 13.3 SEC (12.0-15.0)
[2018-03-14 20:44] LABS: PLATELET COUNT 143 10^3/uL (150-400)
--- NOTE | 2018-03-14 22:31 | ASMTCMCOM ---
CM Note CM Note Notes: Pt has non-operative pelvis fx. Resides at [facility]. Pt with dementia and Parkinson's. PT rec SNF. Chart review indicates pt has been to [facility] 06/19. Spoke with pt about SNF, pt provided SNF list and reports she has friends/family to help her make SNF decision. CM to follow. Date Signed: 03/14/2018 03:25 PM Electronically Signed By:LACEY Hoover
[2018-03-15] MEDS ORDERED: MAGNESIUM HYDROXIDE 30 ML UDCUP PO PRN (08:41)
--- NOTE | 2018-03-15 08:50 | SOAPPROG ---
SOAP Progress Note Assessment/Plan: Assessment: s/p minimally displaced anterior and inferior pubic ramus fracture, closed. Plan: WBAT. PT/OT. DVT prevention: SCDs, GAY sin, IS. Ok to D/C once cleared by PT/OT, CM, hospitalists. F/U in our office in 7-10 days or prn additional questions/concerns which may arise. Patient discussed and agreed upon with Dr. Patricio. Subjective: Patient not awake, unwilling to wake up to respond appropriately to questions or commands. Objective: Vital Signs Temp Pulse Resp BP Pulse Ox 36.6 C 86 15 136/74 H 94 03/14/18 23:32 03/14/18 23:32 03/14/18 23:32 03/14/18 23:32 03/14/18 23:32 Laboratory Results 03/15/18 04:45 03/14/18 05:10 03/14/18 03/15/18 03/16/18 05:59 05:59 05:59 Intake Total 150 Output Total 450 Balance -300 PT 13.3 SEC (12.0-15.0) 03/13/18 23:25 INR 0.99 (0.83-1.16) 03/13/18 23:25 Alone in room, does not want to wake up to stimuli, respond answers or command. NTTP. Calves soft/supple and NTTP b/l. Brisk cap refill present b/l. Unable to assess AROM or strength due to patient being too somnolent. ICD10 Worksheet Patient Problems: Problems Problem Status Onset Fall Acute Hip fracture Acute Pelvis fracture Acute At risk for falling Acute Cat bite of right foot Acute Cellulitis of right foot Acute Right thyroid nodule Acute
[2018-03-15] MEDS ORDERED: FOLIC ACID 0.8 MG PO SCH (09:00)
[2018-03-15] MEDS: ACETAMINOPHEN 325 MG TAB PO SCH ×2 (09:20→21:15)
[2018-03-15] MEDS: CYANO/VITAMIN B12 1000 MCG TAB PO SCH (09:20)
[2018-03-15] MEDS: CARBIDOPA/LEVODOPA 25 MG/100 MG TAB PO SCH ×4 (09:21→18:37)
--- NOTE | 2018-03-15 15:00 | ASMTCMCOM ---
CM Note CM Note Notes: Pt chooses [facility] where she has been before, referral sent in [employer]. Pt sister Key updated. Abby with [facility] will complete on-site assessment tomorrow morning to determine if there is any way pt can return to [facility]. TEO to follow. Date Signed: 03/15/2018 03:00 PM Electronically Signed By:LACEY Hoover
[2018-03-15] MEDS: FOLIC ACID 1 MG TAB PO SCH (15:55)
--- NOTE | 2018-03-15 16:24 | HOSPPROG ---
Hospitalist Progress Note Assessment/Plan: * Pubic ramus fracture -WBAT -will likely need SNF * Parkinsons -Sinemet * Dementia -seems relatively advanced * Recent hip fracture -looks okay * UTI -IV rocephin -culture pending Subjective: No complaitns Objective: Vital Signs Temp Pulse Resp BP Pulse Ox 36.2 C 78 14 115/63 93 03/15/18 08:00 03/15/18 08:00 03/15/18 08:00 03/15/18 08:00 03/15/18 08:00 Laboratory Results 03/15/18 04:45 03/14/18 05:10 03/14/18 03/15/18 03/16/18 05:59 05:59 05:59 Intake Total 150 440 Output Total 450 Balance -300 440 PT 13.3 SEC (12.0-15.0) 03/13/18 23:25 INR 0.99 (0.83-1.16) 03/13/18 23:25 - Physical Exam Constitutional: no apparent distress, appears nourished, not in pain Cardiovascular: regular rate and rhythym, no murmur, rub, or gallop Respiratory: no respiratory distress, no rales or rhonchi, clear to auscultation Gastrointestinal: normoactive bowel sounds, soft, non-tender abdomen, no palpable masses Skin: no rashes or abrasions, no fluctuance, no induration Neurologic: No AAOx3 Psychiatric: interacting appropriately, poor insight, poor judgement, poor memory, No encephalopathic ICD10 Worksheet Patient Problems: Problems Problem Status Onset Fall Acute Hip fracture Acute Pelvis fracture Acute At risk for falling Acute Cat bite of right foot Acute Cellulitis of right foot Acute Right thyroid nodule Acute
--- NOTE | 2018-03-15 17:04 | PDMN ---
Medical Necessity Medical necessity: change to IP; los>2mn for displaced anterior and inferior pubic ramus fracture and UTI; ; requires PT/OT, IV abx, and follow cx; comorbid Parkinson's, dementia, and hx recent hip fx; per order 03/14/18, and note 03/15/18
--- NOTE | 2018-03-15 19:54 | GCON ---
[f rep st] CONSULTATION DATE OF CONSULTATION: 03/14/2018 Please note, that a dictation was performed yesterday, 03/14/2018, and due to problems with [employer] and the dictation system, the syrup maker has now been lost due to downtime in the [employer] system. Therefore, this is a repeat dictation/consult for the patient. HPI: Patient is a pleasant 77-year-old female who resides at [facility], [facility], with a history of dementia, who presents to the ED for right hip pain after sustaining a fall on 03/13/2018. She is unsure of how she fell, but she landed on her right hip and complains of right hip pain. Patient has a history of right hip ORIF, which she states happened in January 2017. Patient is a poor historian, however. She denies any abnormal numbness, tingling, change in distal range of motion, change in heat or color of the extremity at the same time. States pain is a 6/10. Patient is able to respond appropriately to questions, though seems a bit disoriented. She is alone in room. PAST MEDICAL HISTORY: Pertinent for dementia. PAST SURGICAL HISTORY: Pertinent for right hip ORIF in January of 2016, but unable to fully assess as she does not recall dates too well. ALLERGIES: Streptomycin, "dental medications" and "mycin" allergies. HOME MEDICATIONS: Vitamin B12, magnesium hydroxide, acetaminophen, carbidopa/ levodopa and folic acid. SOCIAL HISTORY: Patient has a history of dementia and resides at [facility]. FAMILY HISTORY: No history of cancer, bleeding disorders, respiratory disorders. REVIEW OF SYSTEMS: Otherwise, 10-point review of systems is negative except for as stated above. PHYSICAL EXAM: GENERAL: Patient is alert and oriented, able to respond appropriately to questions and commands. HEENT: Normocephalic, atraumatic. EOMS intact. Moist buccal mucosa. Patent nares. Hearing intact. NECK: No lymphadenopathy. Full ROM. NTTP, with negative Lhermitte's and negative Spurling B/L. RESPIRATORY: Nonlabored breathing. No diaphoresis. CARDIOVASCULAR: RRR. GI: Soft, nontender. MUSCULOSKELETAL: Right hip with mild TTP over the anterior aspect of her hip, otherwise NTTP. No erythema, edema, ecchymosis or calor noted B/L. No evidence of any lacerations. Legs are of equal length. Unable to fully assess AROM due to severe pain to the patient. However, she is able to attempt to bend her knees and wiggle toes B/L. 5/5 strength present in her distal lower extremities. Calves soft, supple and nontender to palpation with negative bilateral Homans. Brisk capillary refill present B/L. DNVI B/L with gross sensation intact B/L and no signs of focal deficits at this time. NEURO: Awake, alert and oriented x3. Moves all 4 extremities equally. Gross sensation intact bilaterally in upper and lower extremities. PSYCH: Normal mood and affect. X-RAYS: Two views of her right hip were obtained which showed an acute right parasymphyseal pubic fracture with minimal displacement. There is a cephalomedullary device present in R proximal femur, with healed fracture. No other fractures, malalignments or deformities noted. ASSESSMENT: Right inferior pubic ramus fracture. PLAN: At this time we have ordered new x-rays to further examined the fracture including inlet/outlet views, and patient is to be made WBAT at this time. Advised patient to watch for any worsening pain, abnormal numbness, tingling, change in heat or color of extremities, cough, congestion, chest pain, and to seek immediate medical attention if seen. We will make a surgical decision after examination of the x-rays, though likely at this time she is a nonsurgical patient. We will continue to monitor her during her stay here. Patient was seen and discussed in conjunction with Dr. Patricio. /[id number]/MODL MTDD
[2018-03-16] MEDS: CARBIDOPA/LEVODOPA 25 MG/100 MG TAB PO SCH ×4 (06:38→17:38)
[2018-03-16] MEDS: ACETAMINOPHEN 325 MG TAB PO SCH ×2 (07:55→21:11)
[2018-03-16] MEDS: CYANO/VITAMIN B12 1000 MCG TAB PO SCH (07:55)
[2018-03-16] MEDS: FOLIC ACID 1 MG TAB PO SCH (07:56)
[2018-03-16] MEDS ORDERED: NS 500 ML IV ONE (17:00)
--- NOTE | 2018-03-16 17:00 | HOSPPROG ---
Hospitalist Progress Note Assessment/Plan: * Pubic ramus fracture -WBAT * Parkinsons -Sinemet * Dementia * Recent hip fracture -looks okay * UTI -IV rocephin -culture pending Dispo - to SNF in am Subjective: No new complaints Objective: Vital Signs Temp Pulse Resp BP Pulse Ox 36.2 C 88 16 84/58 L 97 03/16/18 16:00 03/16/18 16:00 03/16/18 16:00 03/16/18 16:00 03/16/18 16:00 Laboratory Results 03/15/18 04:45 03/15/18 03/16/18 03/17/18 05:59 05:59 05:59 Intake Total 150 1290 Output Total 450 700 100 Balance -300 590 -100 PT 13.3 SEC (12.0-15.0) 03/13/18 23:25 INR 0.99 (0.83-1.16) 03/13/18 23:25 - Physical Exam Constitutional: no apparent distress, appears nourished, not in pain Cardiovascular: regular rate and rhythym, no murmur, rub, or gallop Respiratory: no respiratory distress, no rales or rhonchi, clear to auscultation Gastrointestinal: normoactive bowel sounds, soft, non-tender abdomen, no palpable masses Skin: no rashes or abrasions, no fluctuance, no induration Psychiatric: interacting appropriately, No encephalopathic, No agitated, No poor insight ICD10 Worksheet Patient Problems: Problems Problem Status Onset Fall Acute Hip fracture Acute Pelvis fracture Acute At risk for falling Acute Cat bite of right foot Acute Cellulitis of right foot Acute Right thyroid nodule Acute
[2018-03-17] MEDS: HYDROCODONE/APAP 5/325 TAB PO PRN ×3 (00:25→12:07)
[2018-03-17] MEDS: CARBIDOPA/LEVODOPA 25 MG/100 MG TAB PO SCH ×2 (05:30→09:54)
[2018-03-17 07:26] VITALS: BP 116/54
[2018-03-17 08:28] LABS: PLATELET COUNT 232 10^3/uL (150-400)
--- NOTE | 2018-03-17 09:45 | PDIAF ---
- Diagnosis Diagnosis: pumbic ramus fracture Code Status: Do Not Resuscitate - Medication Management Discharge Medications: Medications to Continue on Transfer Cyanocobalamin [Vitamin B12 (*)] 1,000 mcg PO DAILY 03/01/17 [Last Taken Unknown ] Magnesium Hydroxide [Milk of Magnesia] 400 mg PO Q2D PRN 03/13/18 [Last Taken Unknown] Carbidopa/Levodopa [Carbidopa-Levodopa 25-100 Tab] 1.5 each PO QID@06,,14,18 03/15/18 [Last Taken Unknown] Folic Acid 0.8 mg PO DAILY 03/15/18 [Last Taken Unknown] Acetaminophen [Tylenol 325mg (*)] 650 mg PO Q4HRS PRN tab 03/17/18 [Last Taken Unknown] traMADol [Ultram 50 mg (*)] 25 mg PO BID PRN #30 tab 03/17/18 [Last Taken Unknown] Discharge Medications: Refer to the Discharge Home Medication list for PRN reason. - Orders Services needed: Registered Nurse, Certified Blanket Winder Operator, Physical Therapy, Occupational Therapy Diet Recommendation: no restrictions on diet Diet Texture: Regular Texture Diet Equipment: SCDs for DVT prevents Additional Instructions: Regarding Right hip pubic ramus fracture: WBAT. DVT prophylaxis: SCDs, IS, GAY hose. PT/OT for ambulation with safe precautions. F/U in clinic with Dr. Patricio in 7-10 days or prn additional questions/ concerns which may arise. Can call our office at [phone] to schedule. Call our office with fever, chills, change in heat/color of extremity, worsening change in ROM or strength, abnormal numbness/tingling. - Follow Up Care Current Providers and Referrals: Nichol Mulligan MD [Primary Care Provider] - As per Instructions Elias Patricio MD [Medical Doctor] -
[2018-03-17] MEDS: ACETAMINOPHEN 325 MG TAB PO SCH (09:53)
[2018-03-17] MEDS: CYANO/VITAMIN B12 1000 MCG TAB PO SCH (09:55)
[2018-03-17] MEDS: FOLIC ACID 1 MG TAB PO SCH (10:00)
--- NOTE | 2018-03-17 10:08 | GDS ---
[f rep st] DISCHARGE SUMMARY DISCHARGE DIAGNOSES: 1. Right pubic ramus fracture, nonoperative. 2. Parkinson disease. 3. Advanced dementia. 4. History of thyroid nodule. 5. History of right hip fracture, status post open reduction and internal fixation, June 2017. HISTORY: A 77-year-old female with a history of Parkinson disease, advanced dementia, who resides at [facility], who presented to the ER with right hip pain. She thinks she may have fallen, but she could not recall. X-ray revealed pubic ramus fracture. HOSPITAL COURSE: 1. Pubic ramus fracture: She was evaluated by Orthopedics. Not operative. Weightbearing as tolerated. DVT prophylaxis with SCDs. 2. Parkinson disease. Continue Sinemet. 3. Advanced dementia. Previously living at [facility]. 4. Recent hip fracture, looks okay. 5. E coli UTI. Received 3 doses of IV Rocephin. DISPOSITION: Patient is stable for discharge to [facility]. MEDICATIONS: No medication changes. PHYSICAL EXAMINATION: VITAL SIGNS: Today, temperature 36.4 blood pressure 116/ 54, heart rates in the 70s, respirations 16, 93% on room air. GENERAL: Elderly female, lying in bed, no acute distress. HEENT: PERRLA. CV: Regular rate and rhythm. LUNGS: Clear. ABDOMEN: Soft, nontender, nondistended. Positive bowel sounds. : No Godfrey. MUSCULOSKELETAL: Right pubic tenderness with palpation. NEURO: No focal deficits. PSYCH: She is alert to self, talking nonsensical. Time spent on DC > 30 min bedside with patient and coordinating DC to [facility] /[id number]/MODL MTDD
--- NOTE | 2018-03-17 14:55 | ASMTCMCOM ---
CM Note CM Note Notes: Pt medically stable for d/c to [facility]. Orders sent in Allscripts. Stretcher transport arranged with [facility] for 12:30. Copy of PCS in chart. RN January called report. Pt sister Key updated. [facility] did not update CM on status of their assessment. Voicemail had to be left yesterday for Kathy costa MD in an attempt to get an update. Pt is max assist/total care and staff are using beto stedy, this is usually beyond what any AL can accommodate safely. Pt sister/MDPSTEPHAN Mackey agrees with SNF d/c. Date Signed: 03/17/2018 02:55 PM Electronically Signed By:LACEY Hoover
--- NOTE | 2018-03-17 14:56 | ASDISCHSUM ---
Discharge Information Plan Status:SNF Medically Cleared to Leave: Discharge Date:03/17/2018 12:50 PM CM D/C Disposition:Half-Way Facility ADT D/C Disposition:Half-Way Facility Projected Discharge Date:03/17/2018 11:00 AM Transportation at D/C:ALS/BLS Discharge Delay Reason: Follow-Up Date:03/17/2018 11:00 AM Discharge Slot: Final Diagnosis: Placement Information Referral Type:*Usp/SNF Referral ID:[id number] Provider Name:[facility] Address 1:[address] Address 2: City:[place] Selection Factors: State:[place] Patient Contact Information Contact Name:RUDI Relationship:Sister Address:[address] City:[facility] Alternate Phone: State/Zip Code:[place] [address] Email: Financial Information Financial Class:Medicare Primary Plan Desc:MEDICARE INPATIENT Primary Plan Number:[id number] Secondary Plan Desc:[facility] Secondary Plan Number:[id number] Assessment Information [facility] CM Progress Note CM Note CM Note Notes: Pt has non-operative pelvis fx. Resides at [facility]. Pt with dementia and Parkinson's. PT rec SNF. Chart review indicates pt has been to [facility] 06/19. Spoke with pt about SNF, pt provided SNF list and reports she has friends/family to help her make SNF decision. CM to follow. Date Signed: 03/14/2018 03:25 PM Electronically Signed By:LACEY Hoover [facility] CM Progress Note CM Note CM Note Notes: Pt chooses [facility] where she has been before, referral sent in Allscripts. Pt sister Key updated. Abby with [facility] will complete on-site assessment tomorrow morning to determine if there is any way pt can return to [place] [facility]. CM to follow. Date Signed: 03/15/2018 03:00 PM Electronically Signed By:LACEY Hoover [facility] CM Progress Note CM Note CM Note Notes: Pt medically stable for d/c to [facility]. Orders sent in Allscripts. Stretcher transport arranged with [facility] for 12:30. Copy of PCS in chart. RN January called report. Pt sister Key updated. [facility] did not update CM on status of their assessment. Voicemail had to be left yesterday for Kathy at [place] in an attempt to get an update. Pt is max assist/total care and staff are using beto stedy, this is usually beyond what any AL can accommodate safely. Pt sister/ALVAROSTEPHAN Mackey agrees with SNF d/c. Date Signed: 03/17/2018 02:55 PM Electronically Signed By:LACEY Hoover Intervention Information
--- NOTE | 2018-03-20 11:27 | GHP ---
[f rep st] HISTORY AND PHYSICAL DATE OF ADMISSION: 03/13/2018 SOURCE: The patient is able to provide some of the history. She does have a history of dementia and is a fair historian. EMR was reviewed and case discussed with ED provider. CHIEF COMPLAINT: Pelvic pain, fall. HISTORY OF PRESENT ILLNESS: This is a very pleasant 77-year-old female with past medical history sig nificant for Parkinson disease, dementia, who resides at [facility], presents to [facility] emergency department today from her custodial after she would not get out of bed. The patient i s also complaining of some right hip and pelvic pain. EMS was called and patient was found to be priscila pang in her bed. She has no witnessed falls, although patient reports that she did fall down. She den ies any head injury or loss of consciousness. She denies any other joint pain or muscle pain. REVIEW OF SYSTEMS: GENERAL: Negative for fevers, chills. SKIN: Patient denies any rash or sores. ENT: Patient denies any congestion, sore throat. CV: The patient denies any chest pain, palpitati ons. EYES: No acute changes in vision or ocular pain. RESPIRATORY: Patient denies any shortness o f breath or cough. GI: No nausea, vomiting, abdominal pain. : No dysuria or hematuria. MUSCULO SKELETAL: Joint pain as noted above in HPI. NEURO: Patient denies any headache. No numbness, ting ling. No focal deficits. PSYCH: Patient denies anxiety and depression. Remainder of review of systems negative except as noted above. ALLERGIES: Streptomycin. HOME MEDICATIONS: As per EMR and patient's med rec from custodial: Milk of Mag, glucosamine 500 mg p.o. daily, folic acid 1 mg p.o. daily, vitamin B12 1000 mcg p.o. daily, Sinemet 10/100 one tab p. o. three times daily, and Tylenol 650 mg p.o. q.4 hours p.r.n. for pain. PAST MEDICAL HISTORY: Significant for Parkinson disease, dementia, history of right hip fracture and repair. PAST SURGICAL HISTORY: Significant for right hip cipriano, cholecystectomy, cataract surgery. FAMILY HISTORY: Patient denies any known diabetes, hypertension. SOCIAL HISTORY: Patient resides at [facility]. She does not smoke, drinks only very rarely and de nies any illicit drug use. DNR STATUS: Accompanying paperwork from patient's SNF is DNR, DNI. PHYSICAL EXAMINATION: VITAL SIGNS: Presently on the floor blood pressure 155/78, heart rate 77, res piratory rate 16, O2 saturation 95% on room air and patient is afebrile. GENERAL: No acute distress . Pleasant, elderly, frail-appearing female is lying quietly in bed asleep. She wakes easily to her name. HEAD: Normocephalic, atraumatic. EYES: Extraocular muscles are grossly intact. Pupils equ al, round, react to light bilaterally and symmetric. No scleral icterus or conjunctival injection. Lens reflex is appreciated bilaterally. ENT: Mucous membranes appear moist. No oropharyngeal eryth yonny or exudates. Dentition intact. NECK: Supple, trachea midline. CV: Regular rate and rhythm. No murmurs, rubs, or gallops are appreciated. RESPIRATORY: Unlabored breathing. Lungs are clear to auscultation bilaterally. No wheezes, rales, or rhonchi. ABDOMEN: Positive bowel sounds. Soft, n ontender to palpation. No rebound, guarding, or masses appreciated. : No suprapubic tenderness t o palpation. Patient does have Godfrey catheter in place, is pink-tinged. MUSCULOSKELETAL: Patient i s able to move her distal lower extremities. Limited range of motion proximally secondary to pelvic pain. The patient moves her upper extremities. Strength overall 4-5 in upper and lower extremities. Generalized weakness. NEURO: Grossly nonfocal, no facial drooping. Cranial nerves 2-12 are intac t, symmetric bilaterally. Patient is awake, alert, and oriented to person, year and place. She is a little bit confused and she believes, however, that is October of 2017, cannot provide any date. Gurwinder sneed does become a little bit more confused during the end of the interview and quickly forgets the questions being asked of the provider. LABORATORY STUDIES: WBCs 7.13, H and H are 12.1, 36.3, platelet count is 133, MCV 98.4. PT is 13.3, INR 0.99, PTT is 33.7. Sodium 138, potassium 4.1, chloride 104, CO2 26, BUN 22, creatinine 0.6, GFR is normal, glucose 96, calcium 9.3. UA shows turbid urine, specific gravity 1.012, pH of 5.0, trace ketones, 1+ blood, leuk esterase 0-3+, WBCs 50-182, RBCs 10-15, epithelial cells 3+, bacteria 4+. H ip x-ray, image and report was reviewed myself showing a cipriano with inferior pubic rami fracture that i s mildly displaced. ASSESSMENT AND PLAN: This is a very pleasant 77-year-old female with history of Parkinson dementia, who presents to the emergency department from her [facility] facility following a reported fall and development of pelvic and hip pain. 1. Right inferior pubic rami fracture, mildly displaced. Orthopedics was consulted from the emergen cy department and will evaluate the patient in the morning. PT OT has been consulted. Anticipate th is to be nonoperative. There does not appear to be any displacement of the right femur repair. The patient will not be made n.p.o. at this time. 2. Intractable pelvic pain. The patient has received some Tylenol. Pickford has been ordered at very low dose, but patient has declined at this time. She is complaining mostly of intermittent spasm typ e pain, but again is amenable to utilizing just Tylenol at this time. 3. Parkinson's. Continue Sinemet, 1 med rec available. 4. Dementia. The patient with some confusion, unknown what her exact baseline is, but currently rosio ented to person, place, and year only. Again she does become forgetful and intermittently confused d uring the interview and questions. 5. Fluid, electrolyte, nutrition. Diet as tolerated. Electrolyte monitoring. Replacement if neede d. 6. Prophylaxis. SCDs, anticoagulation with Lovenox. Will try to have patient mobilized later in th e morning or as per orthopedics team. 7. Core status is DNR, DNI as per accompanying custodial forms. 8. Disposition. Patient has been admitted to observation status on the med/surg floor. Anticipate less than 2 midnights' stay pending further recommendations from Orthopedic surgery and/or Occupation al and Physical therapy services. . /[id number]/MODL
--- NOTE | 2018-03-20 11:32 | GCON ---
[f rep st] CONSULTATION HPI: Patient is a pleasant 77-year-old female with a history of dementia who presents today for right hip pain following a fall which she believes occurred 2 days ago. Patient does have a PMH significant for Parkinson dementia and residing at [facility]. She was taken to [facility] by EMS when she was found to be lying on her bed. She had not witnessed falls. She denied any head injury or loss of consciousness at this time. She is able to respond appropriately to questions today in the room and denies any other joint or muscle pain besides the right hip and pelvis pain. Denies any abnormal numbness, tingling, change in heat or color of the extremity with any change in range of motion or strength. States she had a right hip gamma nail placed in January 2018 by a doctor down in [place], states that she has been attending physical therapy but has not been clear for full ambulation at this time. Otherwise a 10 point review of systems is negative except for as stated above. ALLERGIES: Streptomycin. HOME MEDICATIONS: Milk of magnesia, glucosamine, folic acid, vitamin B12, sinemet, and Tylenol as needed for pain. PAST MEDICAL HISTORY: Pertinent for Parkinson disease, dementia, and a history of right hip ORIF. PAST SURGICAL HISTORY: Pertinent for right hip ORIF, cholecystectomy, and cataract surgery. No problems with bleeding or anesthesia at that time. FAMILY HISTORY: Denies any CVD, cancer, diabetes. SOCIAL HISTORY: Patient resident at [facility]. No history of smoking. Occasional alcohol use. No IVDU recreational or otherwise. DNR STATUS: Patient is DNR DNI. PHYSICAL EXAM: GENERAL: Patient is alert and oriented, able to respond appropriately to questions. Mild distress due to pain. Vitals stable. HEENT: Normocephalic, atraumatic. EOMS intact. Moist buccal mucosa. Patent nares. Hearing intact. NECK: No lymphadenopathy. NTTP. Negative Lhermitte's. Negative Spurling. CV: Regular rate and rhythm. RESPIRATORY: Nonlabored breathing. No diaphoresis. ABDOMEN: Soft, nontender, nondistended. MUSCULOSKELETAL: Focalized exam of bilateral lower extremities: Incision of her right hip well healed with no erythema, edema, ecchymosis or pallor. No signs of infection. Patient is able to move her distal lower extremities and is DNVI B/L in her lower extremities with 4+/5 strength B/L in her lower extremities. Legs are of equal length. Calves soft, supple, nontender to palpation bilaterally. AROM limited by pain to the patient. However, she is able to actively attend flexion and extension of her right hip. Gross sensation intact B/L with no focal deficits noted. X-rays: AP image of her pelvis shows a right hip gamma nail with an anterior and inferior pubic rami fracture that is mildly displaced with no fractures, mal alignments or deformities otherwise noted. Good callus formation is noted to the right hip fracture. ASSESSMENT: Right hip superior and inferior pubic rami fracture in the setting of a right hip open reduction internal fixation. PLAN: At this time, patient's physical exam findings and imaging were explained at length where we will get repeat images of her hip for inlet and outlet view to fully assess the fracture. However, at this time, it is likely she is not an operative candidate. Recommend PT OT, WBAT. Pending radiographs , we may determine whether or not to continue with conservative treatment at this time. No NSAIDs or smoking, as this does impair fracture healing. Continue plans for hospitalist. DVT Prophylaxis: STDs, GAY sin. Continue anticoagulation with Lovenox. Patient's physical exam findings and x-rays were discussed at length with Dr. Patricio. Advised patient to watch for any worsening pain, abnormal numbness, tingling, change in heat or color of the extremity, change in range of motion or strength, and to seek immediate medical attention from floor staff. She understands and agrees with this course of action. Patient was discussed with Dr. Patricio. /[id number]/MODL MTDD
== END 2018-03-17 12:50 | DRG 536 ==
LOC: EDUNIT# → F3N 03-14 00:02 → OBSVTOIN 03-14 15:42
PROVIDERS: ADMIT Family Medicine; ATTEND Family Medicine
DX: S32.511A Fracture of superior rim of right pubis, initial encounter for closed fracture (principal); N39.0 Urinary tract infection, site not specified; G20 Parkinson's disease; F03.90 Unspecified dementia, unspecified severity, without behavioral disturbance, psychotic disturbance, mood disturbance, and anxiety; S72.141D Displaced intertrochanteric fracture of right femur, subsequent encounter for closed fracture with routine healing; B96.20 Unspecified Escherichia coli [E. coli] as the cause of diseases classified elsewhere; W19.XXXA Unspecified fall, initial encounter; Z66 Do not resuscitate
CPT/HCPCS: 97110-GP; 97116-GP; 97162-GP; 97166-GO; 97530-GO; 97530-GP; 97535-GO; G8978-GP-CL; G8979-GP-CK; G8987-GO-CM; G8988-GO-CK; J0696

== ENCOUNTER 2018-10-10 20:48 | Inpatient (IN) | payer OTHER ==
[2018-10-10 21:17] LABS: PLATELET COUNT 191 10^3/uL (150-400)
--- NOTE | 2018-10-10 21:43 | EDPHY ---
General Time Seen by Provider: 10/10/18 21:10 Narrative: CLINICAL IMPRESSION: Closed, left intratrochanteric fracture, closed left olecranon fracture, closed left radial head fracture ASSESSMENT/PLAN: 77-year-old demented female presents to the emergency department by ambulance after a reported mechanical fall from standing height at her assisted living facility. Patient is on the memory care unit, at her baseline mental status, answering questions appropriately, oriented x2 which according to chart notes and EMS is baseline for her. Her closest family member is a sister in [place] who did not provide any additional medical history. No clinical signs of closed head injury, scalp hematoma or contusion, and no report midline neck pain. CT head and neck results interpreted by radiologist initially as negative for acute findings however Dr. Espinoza then came to the emergency department and informed us that patient appears to have a new T3 compression fracture. This was related to the trauma surgeon. Patient is only complaining of left elbow pain and left hip pain. She has a superficial abrasion to the left elbow, X-rays and confirmatory CT scan of the pelvis obtained and read by Radiology as closed intertrochanteric hip fracture, and old pubis symphysis fracture. Plain x-rays also reveal a closed left olecranon and radial head fracture. No chest wall or rib tenderness to palpation, abdomen soft and nonfocal. Chest x-ray read by Radiology with no acute sternal or rib fracture, or pneumothorax. No reproducible midline thoracic or lumbar back pain. I discussed with Dr. Garcia who saw the patient in the ED and will plan to admit to the trauma service. Case and radiology images also discussed with Dr. Briscoe. Discussed with Dr. Torres who requested the patient remain NPO after midnight. Left elbow placed in a forearm sugar-tong splint. Patient stabilized in the ED prior to admission. Pain controlled with 1 dose of IV Dilaudid. Patient in stable condition at time of admission to Dr. Garcia service. DIFFERENTIAL DX: Differential includes but not limited to left hip fracture, pelvic fracture, left elbow fracture, mechanical fall, new onset atrial fibrillation ED PROCEDURES: See lab and/or imaging results below Procedure: Splint placement. A left forearm sugar-tong splint was applied by ED military technician, supervised by myself. After application of the splint I returned and re-examined the patient. The splint was adequately immobilizing the joint and distal to the splint the patient's circulation and sensation was intact. ED COURSE: 10:50 P.M.: X-ray results discussed with Dr. Briscoe, patient appears to have superior and inferior pubic rami fractures, a left intratrochanteric femur fracture, and a left proximal ulnar fracture. CT scans ordered. Will page Trauma 11:20 p.m.. Case discussed with Dr. Garcia on-call for trauma surgery. He requests CT scan of head and neck as well. He would like to be paged when CTs are back and he will see the patient in the ED. 11:[address] with [address] reveals left intertrochanteric femur fracture. Patient does appear to have hematoma developing in the anterior thigh near the femoral artery and vein with no evidence of brisk extravasation. Her symphysis pubis fracture appears to be old. She also has olecranon fracture on the left and a possible radial head fracture on the left. 11:30 p.m.. Patient reassessed, strong femoral pulses bilaterally, no evidence of compartment syndrome, mild swelling noted to anterior thigh on the left. 11:55 p.m.: Case discussed with Dr. Torres, he requests the patient stay NPO after midnight he will see her in the morning. CHIEF COMPLAINT: Fall HPI: 77-year-old female with a past medical history of dementia and Parkinson's disease, resident of [facility] memory care unit, presents to the emergency department by ambulance after an unwitnessed mechanical fall. Patient reports that she slipped on peanuts and it was reported by EMS that there were peanuts all over her floor. The patient was found to have a left elbow abrasion that was reportedly deformed. On arrival she began planning of left hip pain. Patient does not believe she hit her head, she is alert to person and place. She has no complaints of headache, dizziness, nausea or vomiting. No chest wall, abdominal pain. No back pain. Patient is otherwise a very poor historian PAST MEDICAL HISTORY: Parkinson's, dementia See nurse/triage notes for additional history if applicable Pertinent Past Surgical History: Prior ORIF right femur fracture and ORIF left supracondylar fracture. Family History: None reported Social History: Resident at [facility], memory care unit REVIEW OF SYSTEMS: All other systems negative, limited due to patient's dementia Constitutional: No fever, no chills, appetite change. Eyes: vision change ENT: No sore throat, congestion, ear pain. Cardiovascular: No chest pain, no palpitations. Respiratory: No cough, no shortness of breath. Gastrointestinal: No abdominal pain, no vomiting, diarrhea. Genitourinary: No pelvic pain Musculoskeletal: No back pain, positive left elbow and left hip pain. Skin: Positive abrasion to left elbow Neurological: No headache, dizziness, PHYSICAL EXAM: General Appearance: Alert, oriented x2 which is apparently patient's baseline, cooperative, NAD, well hydrated, non-toxic appearing, VSS, no hypoxia, tremulous. HEENT: TMs are clear bilaterally no perforation or FB, no injection, no evidence of serous or mucopurulent otitis. No hemotympanum or Watts sign. No raccoon eyes. Oropharynx clear is no erythema or exudates, no tonsillar hypertrophy or asymmetry. Dentition without abnormality. No palpable scalp hematoma, contusion or step-off. Eyes: PERRLA, no acute vision change, nystagmus, swelling, discharge, pain or photosensitivity. Conjunctiva pink, no pallor or injection Neck: Supple, nontender, no lymphadenopathy, no midline pain, FROM, no meningismus. Respiratory: There are no retractions, lungs are clear to auscultation. No chest wall pain to palpation Cardiac: Irregularly irregular rhythm, no murmurs or gallops. Gastrointestinal: Abdomen is soft, nontender, bowel sounds normal, no masses/ hernia, no rigidity, guarding or focal peritoneal findings. Neurological: Alert and oriented x 2 Skin: Superficial abrasion noted at proximal to the left olecranon, no e/o open laceration. Musculoskeletal: Extremities are symmetrical, limited range of motion of left elbow due to pain. Limited range of motion of left hip due to pain. Left hip is held in slight external rotation and left leg appears shortened. Patient also has parkinsonian spasms which limits her movement. No left shoulder pain to palpation. No midline thoracic or lumbar back pain to palpation. Reproducible pain to palpation of the left elbow. This is associated with a superficial abrasion. No evidence of open fracture. Neurovascular exam of the lower extremities grossly intact Psychiatric: Patient is oriented X 2, there is no agitation. MEDICAL DECISION MAKING: Patient was seen independently. Secondary supervising physician at time of evaluation was Dr. Lamonte Briscoe. Diagnosis: Closed left intertrochanteric fracture, closed left olecranon and radial head fracture, old symphysis pubic fracture. New, requires workup Summary: See Assessment and Plan for summary of ED visit Clinical lab tests: ordered / reviewed. Independent visualization of images, tracing, or specimens: Yes. Decision to obtain medical records or history from someone other than the patient: EMS Discussed patient with another provider: Dr. Briscoe, Dr. Garcia, Dr. Torres Patient Progress: Stable. - Diagnostics Imaging Results: Imaging Impressions Cervical Spine CT 10/10/18 23:22 Impression: 1. No acute intracranial process or cervical spine fracture/subluxation. 2. Age-appropriate generalized cerebral volume loss with sequela of chronic microvascular ischemic disease, advanced since the prior examination. 3. Degenerative spondylosis of the cervical spine. 4. Thyroid nodules. These have been evaluated before in the past but unclear if the dominant nodule on the right has been sampled. Recommend fine needle aspiration if not already performed. Findings and recommendations discussed with Drew Townsend at 0006 hour, 10/11/2018. Head CT 10/10/18 23:22 Impression: 1. No acute intracranial process or cervical spine fracture/subluxation. 2. Age-appropriate generalized cerebral volume loss with sequela of chronic microvascular ischemic disease, advanced since the prior examination. 3. Degenerative spondylosis of the cervical spine. 4. Thyroid nodules. These have been evaluated before in the past but unclear if the dominant nodule on the right has been sampled. Recommend fine needle aspiration if not already performed. Findings and recommendations discussed with Drew Townsend at 0006 hour, 10/11/2018. - History Smoking Status: Never smoked - Objective Vital Signs: Initial Vital Signs Temperature (C) 35.8 C L 10/10/18 20:55 Heart Rate 80 10/10/18 20:55 Respiratory Rate 16 10/10/18 20:55 Blood Pressure 170/98 H 10/10/18 20:55 O2 Sat (%) 97 10/10/18 20:55 O2 Delivery Mode Nasal Cannula O2 (L/minute) 2 Allergies/Adverse Reactions: streptomycin Allergy (Verified 10/10/18 21:01) dental meds Allergy (Unknown, Uncoded 05/09/18 18:51) MYCIN Allergy (Uncoded 05/09/18 18:51) Home Medications: Medication Instructions Recorded Cyanocobalamin [Vitamin B12 (*)] 1,000 mcg PO DAILY 03/01/17 Carbidopa/Levodopa 1.5 each PO QID@,,,20 03/15/18 [Carbidopa-Levodopa 25-100 Tab] Folic Acid 0.8 mg PO DAILY 03/15/18 Acetaminophen [Tylenol ES 500 mg 500 mg PO Q8H 10/11/18 (*)] Midodrine HCl 2.5 mg PO BID@,10/11/18 Psyllium Husk/Aspartame [Metamucil 3.4 gm PO DAILY 10/11/18 Fiber Singles Packet] guaiFENesin [Mucinex 600 MG (*)] 600 mg PO BID 10/11/18 Laboratory Results: Laboratory Results 10/10/18 20:58 10/10/18 20:58 Medications Given: Acetaminophen (Tylenol) 1,000 mg PO Q8H JOSE Stop: 04/09/19 01:29 Last Admin: 10/11/18 11:14 Dose: 1,000 mg Carbidopa/Levodopa (Sinemet) 1.5 tab PO QID@,,, JOSE Stop: 04/09/19 11:59 Last Admin: 10/11/18 11:14 Dose: 1.5 tab Hydromorphone HCl (Dilaudid) 0.2 - 0.4 mg IVP Q1H PRN PRN Reason: Pain, Severe Unable to Take PO Stop: 10/21/18 01:39 Last Admin: 10/11/18 11:14 Dose: 0.4 mg Discontinued Medications Bisacodyl (Dulcolax Rectal) 10 mg ND ONCE ONE Stop: 10/11/18 10:17 Last Admin: 10/11/18 11:14 Dose: 10 mg Folic Acid (Folic Acid) 1 mg PO DAILY JOSE Stop: 04/09/19 10:59 Last Admin: 10/11/18 11:19 Dose: Not Given Hydromorphone HCl (Dilaudid) 0.5 mg IVP EDNOW ONE Stop: 10/10/18 22:15 Last Admin: 10/10/18 22:16 Dose: 0.5 mg Hydromorphone HCl (Dilaudid) 0.5 mg IVP EDNOW ONE Stop: 10/10/18 22:57 Last Admin: 10/11/18 00:03 Dose: Not Given Departure - Departure Disposition: [facility] Inpatient Acute Clinical Impression: Intertrochanteric fracture of left femur Qualifiers: Encounter type: initial encounter Fracture type: closed Fracture alignment: displaced Qualified Code(s): S72.142A - Displaced intertrochanteric fracture of left femur, initial encounter for closed fracture Closed olecranon fracture Qualifiers: Encounter type: initial encounter Laterality: left Qualified Code(s): S52.022A - Displaced fracture of olecranon process without intraarticular extension of left ulna, initial encounter for closed fracture Left radial head fracture Qualifiers: Encounter type: initial encounter Fracture type: closed Condition: Fair
[2018-10-10] MEDS ORDERED: HYDROmorphONE/DILAUDID 2 MG/ML INJ IVP ONE ×2 (22:14→22:56)
--- NOTE | 2018-10-11 00:33 | CPEKG ---
Test Reason : OPEN Blood Pressure : / mmHG Vent. Rate : 073 BPM Atrial Rate : 133 BPM P-R Int : 114 ms QRS Dur : 093 ms QT Int : 461 ms P-R-T Axes : 045 -55 -19 degrees QTc Int : 508 ms Unknown rhythm, irregular rate Left anterior fascicular block Consider anterior infarct Borderline T abnormalities, inferior leads Prolonged QT interval Confirmed by Nick Briscoe ([id number]) on 10/11/2018 12:32:39 AM Referred By: Confirmed By:Ncik Briscoe
[2018-10-11] MEDS ORDERED: ONDANSETRON 4 MG/2 ML VIAL IVP PRN (01:16)
--- NOTE | 2018-10-11 02:14 | GHP ---
DATE OF ADMISSION: 10/11/2018 ADMITTING DIAGNOSES: 1. Fall (mechanics uncertain). 2. Left olecranon fracture, possible left radial head fracture. 3. Left intertrochanteric fracture. 4. Old right superior and inferior pubic ramus fracture. 5. Left hip fracture, status post open reduction, internal fixation. 6. Dementia. 7. Parkinsonism. HISTORY: The patient is a 77-year-old resident of [facility]. Per EMS, she was found on a carpeted floor. Per the patient , she fell down 6 steps. She states she slipped on peanuts, which EMS confirms were on the floor. She is unclear as to how long she was down. She complains of left elbow and left hip pain. She is brought to [facility] and evaluated by Drew Townsend PA-C, and Dr. Odilon Aburto. SOCIAL HISTORY: She never smoked. She drinks a glass of wine every 2-3 weeks. ALLERGIES: She has an allergy to streptomycin. CURRENT MEDICATIONS: Include Tylenol 650 mg every 4 hours. Carbidopa/levodopa 25/100 1.5 tabs at 6 a.m., 10 a.m., 2 p.m., and 6 p.m. She takes folate 0.8 mg daily. Milk of magnesia 400 mg every other day as needed. Vitamin B12 1000 mcg daily. SURGERIES: Include left hip ORIF, cholecystectomy, and cataract surgery. PAST MEDICAL HISTORY: There is no history of rheumatic fever, tuberculosis, hepatitis, or transfusions. REVIEW OF SYSTEMS: She has had parkinsonism and is unclear as to how long that has been present. Her best guess is 3 years. She wears lenses for visual correction. She does have hay fever. Her notes from the [facility] indicate that her resuscitation status is no CPR, do not intubate, and no intensive care unit visit. PHYSICAL EXAMINATION: GENERAL: Shows a patient who is awake but appears somewhat confused. HEENT: Her skull is normocephalic and atraumatic. There is no Watts sign. There are no raccoon eyes. Dentition appears to be intact. NECK: Unremarkable and not tender. I do not appreciate any carotid bruits. LUNGS: She has difficulty complying with requests to take a deep breath but lungs appear to be normal bilaterally. Chest stable to AP and Lateral compression. CARDIAC: Reported as irregularly irregular, but as I listen to it, it is a regular heartbeat. (EKG pending) BACK: Nontender along spinous processes. ABDOMEN: Soft and nontender, with normoactive bowel sounds. RECTAL: Shows soft stool. EXTREMITIES: By report, there is an abrasion noted proximal to the left olecranon, but she currently is in a splint at this point. I did not remove the splint to re-evaluate this. It has been treated with bacitracin and petrolatum gauze. NEUROLOGIC: She has minimal cogwheel rigidity in her right upper extremity and her right lower extremity. I do not detect any focal or lateralizing defects. Attempt is made to contact her sister, but no answer was received (in [place]). DATA: Her chest x-ray shows no acute cardiopulmonary process, but mild cardiomegaly. Left elbow shows a fracture of the olecranon. There is a lucency through the radial head that may represent nondisplaced fracture or artifact. Hip x-ray shows a mildly displaced left intertrochanteric fracture. There are chronic fractures of the right superior and inferior pubic ramus, and there is intact hardware in the right femur. CT of the pelvis notes a hematoma in the left proximal anterolateral thigh. Also notes a large amount of stool in the rectum. CT of the head was reported verbally as negative. A CT of the neck was reported as negative, but there was a question of a superior endplate fracture of T3. Note is made her MCV is 100.3. Her white count is 9, her hematocrit is 38, platelet count is 191. Sodium is 139, potassium 3.9, BUN is 20, and creatinine is 0.7. An INR and BNP will be obtained in the morning along with repeat laboratories. PLAN: Dr. Torres has been consulted from orthopedics. She will be admitted to the step-down unit. A Fleet enema will be tried given the large volume stool in the rectal vault, which thankfully does not appear to extend much proximally. Copy requested to: Dr. Torres [facility] /[id number]/MODL MTDD
--- NOTE | 2018-10-11 02:43 | PDHOSCONS ---
History and Physical - Chief Complaint Fall - History of Present Illness 77 yo F w/ hx of PD presents after mechanical fall from standing height. The patient has advanced dementia and resides in a memory care unit. She is oriented to person and place during my evaluation, which appers to be her baseline from chart review. She was admitted in March of 2018 for non-operative management of a pubic ramus fracture and in 2016 for ORIF of R hip fracture. Today her evaluation is notable for L intertrochanteric fracture, L olecranon fracture, and L radial head fracture. The hospital medicine service was asked to consult for management of chronic medical issues. During my evaluation the patient denies symptoms aside from pain related to her fall. She denies LOC of head trauma related to her fall. Case discussed with trauma surgeon Dr. Garcia; records reviewed and summarized above. History Information - Allergies/Home Medication List Allergies/Adverse Reactions: streptomycin Allergy (Verified 10/10/18 21:01) dental meds Allergy (Unknown, Uncoded 05/09/18 18:51) MYCIN Allergy (Uncoded 05/09/18 18:51) Home Medications: RX: Cyanocobalamin [Vitamin B12 (*)] 1,000 mcg PO DAILY 03/01/17 [Last Taken Unknown] RX: Magnesium Hydroxide [Milk of Magnesia] 400 mg PO Q2D PRN 03/13/18 [Last Taken Unknown] RX: Carbidopa/Levodopa [Carbidopa-Levodopa 25-100 Tab] 1.5 each PO QID@06,10,14, 18 03/15/18 [Last Taken Unknown] RX: Folic Acid 0.8 mg PO DAILY 03/15/18 [Last Taken Unknown] I have personally reviewed and updated: family history, medical history - Past Medical History Additional medical history: Parkinson's disease. Pubic ramus fracture 03/20 - Surgical History Additional surgical history: ORIF R hip 06/19 - Family History Additional family history: Denies family hx of Parkinson's disease - Social History Smoking Status: Never smoked Review of Systems Review of Systems: ROS: 10pt was reviewed & negative except for what was stated in HPI & below Physical Exam Physical Exam: Temp Pulse Resp BP Pulse Ox 36.6 C 81 15 141/68 H 97 10/11/18 02:33 10/11/18 02:33 10/11/18 02:33 10/11/18 02:33 10/11/18 02:33 O2 (L/minute) 2 Constitutional: appears nourished, uncomfortable Eyes: PERRL, anicteric sclera Ears, Nose, Mouth, Throat: moist mucous membranes, no oral mucosal ulcers Cardiovascular: regular rate and rhythym, no murmur, rub, or gallop Respiratory: no respiratory distress, clear to auscultation Gastrointestinal: normoactive bowel sounds, soft, non-tender abdomen Skin: warm, normal color Musculoskeletal: joint tenderness, muscular tenderness Neurologic: other (A&Ox2), No facial droop Lab Data & Imaging Review 10/10/18 20:58 10/10/18 20:58 WBC 9.02 10^3/uL (3.80-9.50) 10/10/18 20:58 RBC 3.82 10^6/uL (4.18-5.33) L 10/10/18 20:58 Hgb 12.9 g/dL (12.6-16.3) 10/10/18 20:58 Hct 38.3 % (38.0-47.0) 10/10/18 20:58 MCV 100.3 fL (81.5-99.8) H 10/10/18 20:58 MCH 33.8 pg (27.9-34.1) 10/10/18 20:58 MCHC 33.7 g/dL (32.4-36.7) 10/10/18 20:58 RDW 12.6 % (11.5-15.2) 10/10/18 20:58 Plt Count 191 10^3/uL (150-400) 10/10/18 20:58 MPV 10.0 fL (8.7-11.7) 10/10/18 20:58 Neut % (Auto) 73.6 % (39.3-74.2) 10/10/18 20:58 Lymph % (Auto) 19.1 % (15.0-45.0) 10/10/18 20:58 Pitt % (Auto) 5.9 % (4.5-13.0) 10/10/18 20:58 Eos % (Auto) 0.7 % (0.6-7.6) 10/10/18 20:58 Baso % (Auto) 0.4 % (0.3-1.7) 10/10/18 20:58 Nucleat RBC Rel Count 0.0 % (0.0-0.2) 10/10/18 20:58 Absolute Neuts (auto) 6.64 10^3/uL (1.70-6.50) H 10/10/18 20:58 Absolute Lymphs (auto) 1.72 10^3/uL (1.00-3.00) 10/10/18 20:58 Absolute Monos (auto) 0.53 10^3/uL (0.30-0.80) 10/10/18 20:58 Absolute Eos (auto) 0.06 10^3/uL (0.03-0.40) 10/10/18 20:58 Absolute Basos (auto) 0.04 10^3/uL (0.02-0.10) 10/10/18 20:58 Absolute Nucleated RBC 0.00 10^3/uL (0-0.01) 10/10/18 20:58 Immature Gran % 0.3 % (0.0-1.1) 10/10/18 20:58 Immature Gran # 0.03 10^3/uL (0.00-0.10) 10/10/18 20:58 Sodium 139 mEq/L (135-145) 10/10/18 20:58 Potassium 3.9 mEq/L (3.5-5.2) 10/10/18 20:58 Chloride 105 mEq/L (97-110) 10/10/18 20:58 Carbon Dioxide 25 mEq/l (22-31) 10/10/18 20:58 Anion Gap 9 mEq/L (6-14) 10/10/18 20:58 BUN 20 mg/dL (7-23) 10/10/18 20:58 Creatinine 0.7 mg/dL (0.6-1.0) 10/10/18 20:58 Estimated GFR > 60 10/10/18 20:58 Glucose 99 mg/dL (70-100) 10/10/18 20:58 Calcium 9.7 mg/dL (8.5-10.4) 10/10/18 20:58 Imaging Review: Imaging Impressions Chest X-Ray 10/10/18 21:09 Impression: 1. No acute cardiopulmonary process. 2. Mild cardiomegaly with central vascular congestion. Elbow X-Ray 10/10/18 21:09 Impression: Severely limited study due to positioning. 1. Fracture of the olecranon. 2. There is a lucency through the radial head which may represent a nondisplaced fracture or artifact. 3. Surrounding soft tissue swelling. Hip X-Ray 10/10/18 21:09 Impression: 1. Mildly displaced left intertrochanteric fracture. Linear lucency in the left iliac wing likely represents artifact rather than fracture. 2. Chronic fracture deformities of the right superior inferior pubic rami. 3. Hardware within the right femur appears intact. Pelvis CT 10/10/18 22:54 Impression: 1. Comminuted, mildly displaced intertrochanteric fracture of the left femur. 2. Edema and hematoma formation in the anterior left thigh. The femoral artery and vein lie within this area. Would recommend correlation with physical examination. By noncontrast technique, no evidence of brisk active extravasation. 3. Ununited fracture of the right symphysis pubis. Healing fracture of the right inferior pubic ramus. 4. Large amount stool in the rectum. Findings and recommendations discussed with Drew Townsend at 11:27 PM hour , 10/10/2018. Visualized and Interpreted Chest x-ray results: Yes Chest X-Ray results: no infiltrate Visualized and Interpreted EKG results: Yes EKG Interpretation: Positive for: other (Regularly irregular, sinus dysrhythmia? ) Assessment & Plan Assessment: 77 yo F w/ hx of PD and dementia presents after a fall with multiple fractures. Plan: 1. L intertrochanteric fracture - CT (personally reviewed/interpreted) demonstrates comminuted, mildly displaced intertrochanteric fracture of the left femur. - Maintain NPO - Likely surgical correction in the morning - Trauma and orthopedic surgery aware 2. L olecranon fracture, possible L radial head fracture - Related to mechanical fall on admission. - Trauma and orthopedic surgery following 3. Parkinson's Disease - Continue Sinemet at home dose pending pharmacy reconciliation. 4. Dementia - At mental baseline on admission; resides at memory care unit. 5. Abnormal ECG - Appears to be NSR with frequent PAC's from review of ECG and telemetry. She denies history of atrial fibrillation. - Monitor on telemetry Thank you for this consult, the hospital medicine service will follow along with you.
[2018-10-11] MEDS: ACETAMINOPHEN 500 MG TAB PO SCH ×3 (05:17→21:02)
[2018-10-11 05:56] LABS: INR 1.07 (0.83-1.16); PROTIME(PATIENT) 14.1 SEC (12.0-15.0)
--- NOTE | 2018-10-11 09:32 | TRAUMAPNT ---
Trauma Tertiary Progress Note New Findings: No new findings Assessment/Plan: 10/11/2017 PAD#0 Assessment: No complaints, no new findings VSS, Left arm in splint. No stool since admission ( large volume of soft stool in rectum) Spoke with her sister (medical proxy, currently in [place]) no additional information except that she requests [facility] for rehab. AM Hct pending Plan: Orthopedic intervention today rectal suppository follow Hct Subjective: No complaints this morning Objective: Vital Signs Temp Pulse Resp BP Pulse Ox 37.1 C 95 15 119/63 93 10/11/18 08:00 10/11/18 08:00 10/11/18 08:00 10/11/18 08:00 10/11/18 08:00 Laboratory Results 10/11/18 05:30 PT 14.1 SEC (12.0-15.0) 10/11/18 05:30 INR 1.07 (0.83-1.16) 10/11/18 05:30 - C-Spine Clearance Cervical Spine Cleared: Yes Provider who Cleared Cervical Spine: Radha Beckford in ER Physical Exam - Physical Exam General Appearance: alert, no apparent distress, other (pain only with motion) Neck: non-tender, full range of motion, normal inspection Respiratory: chest non-tender, lungs clear, normal breath sounds Cardiac/Chest: regular rate, rhythm Abdomen: normal bowel sounds, non-tender, soft Pelvic Exam: deferred Rectal: other (soft stool in vault last PM) Back: Normal inspection Skin: normal color, warm/dry Extremities: other (Left arm gutter splint, right arm and leg mild cog wheel motion) Neuro/Psych: alert Time Spent w/Patient (minutes): 25
[2018-10-11] MEDS ORDERED: BISACODYL 10 MG SUPP PR ONE (10:16)
--- NOTE | 2018-10-11 10:36 | PDMN ---
Medical Necessity Medical necessity: [facility] Multiple Trauma GR yo s/p fall w/ multi fx to L olecranon, possible left radial head fx, left intertrochanteric fx, old right superior and inferior pubic ramus fx, left hip fracture s/p ORIF. Trauma following. Ortho consult pending. Admit to IP status for multi trauma fx. Hx dementia, parkinsonism.
--- NOTE | 2018-10-11 10:42 | GCON ---
REASON FOR CONSULTATION: Left hip, left elbow pain. HISTORY OF PRESENT ILLNESS: The patient is a 77-year-old limited ambulator, who sustained a fall, re sulting in inability to ambulate and left hip and elbow pain. The patient has a past history of ORIF of the left supracondylar humerus fracture, as well as operative treatment of a right intertrochante rishi femur fracture. PHYSICAL EXAMINATION: MUSCULOSKELETAL: She holds her hip in a slightly externally rotated position. Attempts at motion throughout the hip produce significant pain. There is mild shortening of her le ft lower extremity. Distal neurovascular exam is grossly intact. Her left elbow is in a well-padded above-elbow splint. There is diffuse tenderness throughout the elbow. Distal neurovascular exam is grossly intact. IMAGING: Radiographs show evidence of a comminuted left olecranon fracture and a left intertrochante rishi femur fracture. ASSESSMENT: 1. Left olecranon fracture. 2. Left intertrochanteric femur fracture. PLAN: It was recommended that operative treatment consisting of intramedullary nail fixation of her left hip and open reduction, internal fixation of her left elbow be pursued. This will be performed pending medical clearance. /[id number]/MODL
[2018-10-11] MEDS ORDERED: FOLIC ACID 1 MG TAB PO SCH (11:00)
[2018-10-11] MEDS: HYDROmorphONE/DILAUDID 1 MG/ML INJ IVP PRN ×2 (11:14→21:01)
[2018-10-11] MEDS: CARBIDOPA/LEVODOPA 25 MG/100 MG TAB PO SCH ×3 (11:14→21:02)
[2018-10-11 11:35] LABS: PLATELET COUNT 147 10^3/uL (150-400)
--- NOTE | 2018-10-11 12:46 | ASMTCASEMG ---
Living Arrangements What is your living Answers: Alone arrangement? Who do you live with? Type Of Residence What kind of residence do Answers: Assisted Living you live in? Type of Residence Facility Name Notes: [facility] Discharge Plan Comments Coordination Status Comments Notes: Patient is a 77yo single female who is a resident of [facility] and was found down on a carpeted floor by EMS and brought to [facility] ER. Patient has been admitted for hip fracture, pelvis fracture, intertrochanteric fracture of left femur, closed olecranon fracture and left radial head fracture. PT/OT/ADJUDICATION SPECIALIST/Inpatient rehab evals have been ordered. Patient's sister is her ALVAROOA, she lives in [place]. Patient's records from [facility] indicate patient is no CPR, do not intubate, and no ICU visit. An attempt to reach patient's sister has been made. CM will continue to attempt to make contact. D/C plan TBD. CM will follow. Date Signed: 10/11/2018 12:45 PM Electronically Signed By:Chrissie Goldsmith LCSW
--- NOTE | 2018-10-11 14:08 | HOSPPROG ---
Hospitalist Progress Note Assessment/Plan: 77 yo F w/ hx of PD and dementia presents after a fall with multiple fractures. Plan: L intertrochanteric fracture - CT (personally reviewed/interpreted) demonstrates comminuted, mildly displaced intertrochanteric fracture of the left femur. - NPO, OR today - post-op care per ortho team L olecranon fracture, possible L radial head fracture - Related to mechanical fall on admission. - Trauma and orthopedic surgery following Parkinson's Disease - Continue Sinemet Dementia - At baseline, resides at memory care unit. Abnormal ECG - NSR with frequent PAC's on EKG and telemetry. - Monitor on telemetry Limited resuscitation Dispo - cont inpt Subjective: Pt is demented, resting comfortably. Denies pain. No complaints. Objective: Vital Signs Temp Pulse Resp BP Pulse Ox 37.1 C 96 12 130/62 H 91 L 10/11/18 08:00 10/11/18 12:00 10/11/18 12:00 10/11/18 12:00 10/11/18 12:00 Laboratory Results 10/11/18 11:00 10/11/18 05:30 PT 14.1 SEC (12.0-15.0) 10/11/18 05:30 INR 1.07 (0.83-1.16) 10/11/18 05:30 - Physical Exam Constitutional: no apparent distress Eyes: PERRL Ears, Nose, Mouth, Throat: moist mucous membranes Cardiovascular: regular rate and rhythym Respiratory: no respiratory distress Gastrointestinal: normoactive bowel sounds, soft, non-tender abdomen Skin: warm Psychiatric: poor memory ICD10 Worksheet Patient Problems: Problems Problem Status Onset Closed olecranon fracture Acute Intertrochanteric fracture of left femur Acute Left radial head fracture Acute At risk for falling Acute Cat bite of right foot Acute Cellulitis of right foot Acute Fall Acute Hip fracture Acute Pelvis fracture Acute Right thyroid nodule Acute
[2018-10-11] MEDS ORDERED: LR 1,000 ML IV ONE (16:16)
[2018-10-11] MEDS ORDERED: BUPIVACAINE 0.5% 30 ML SDV ONE (16:21)
[2018-10-11] MEDS ORDERED: CEFAZOLIN 2 GM/DEXTROSE/100 ML BAG IV ONE (16:59)
[2018-10-11] MEDS ORDERED: fentaNYL 100 MCG/2 ML INJ ONE (17:03)
[2018-10-11] MEDS ORDERED: PROPOFOL 200 MG/20 ML VIAL ONE (17:03)
[2018-10-11] MEDS ORDERED: ceFAZolin 2 GM/DEXTROSE 100 ML IV ONE (17:30)
[2018-10-11] MEDS ORDERED: METOCLOPRAMIDE 10 MG/2 ML VIAL ONE (17:37)
[2018-10-11] MEDS ORDERED: ROCURONIUM 50 MG/5 ML VIAL ONE (17:37)
[2018-10-11] MEDS ORDERED: ONDANSETRON 4 MG/2 ML VIAL ONE (17:37)
--- NOTE | 2018-10-11 17:40 | PDANEPAE ---
ANE Past Medical History - Cardiovascular History Hx Hypertension: Yes Hx Arrhythmias: Yes - Pulmonary History Hx Oxygen in Use at Home: No Hx Sleep Apnea: No Sleep Apnea Screening Result - Last Documented: Negative - Neurologic History Hx Dementia: Yes Neurologic History Comment: Parkinsons - Endocrine History Hx Diabetes: No - Chronic Pain History Chronic Pain: No ANE Review of Systems Review of Systems: ANE Patient History - Allergies Allergies/Adverse Reactions: streptomycin Allergy (Verified 10/10/18 21:01) dental meds Allergy (Unknown, Uncoded 05/09/18 18:51) MYCIN Allergy (Uncoded 05/09/18 18:51) - Home Medications Home Medications: Cyanocobalamin [Vitamin B12 (*)] 1,000 mcg PO DAILY 03/01/17 [Last Taken ] Carbidopa/Levodopa [Carbidopa-Levodopa 25-100 Tab] 1.5 each PO QID@08,12,16,20 03/15/18 [Last Taken 10/10/18] Folic Acid 0.8 mg PO DAILY 03/15/18 [Last Taken 10/10/18] Acetaminophen [Tylenol ES 500 mg (*)] 500 mg PO Q8H 10/11/18 [Last Taken ] Midodrine HCl 2.5 mg PO BID@09,16 10/11/18 [Last Taken 10/10/18] Psyllium Husk/Aspartame [Metamucil Fiber Singles Packet] 3.4 gm PO DAILY [Last Taken 10/10/18] guaiFENesin [Mucinex 600 MG (*)] 600 mg PO BID 10/11/18 [Last Taken 10/10/18] - NPO status NPO Since - Liquids (Date): 10/11/18 NPO Since - Liquids (Time): 00:00 NPO Since - Solids (Date): 10/11/18 NPO Since - Solids (Time): 00:00 - Smoking Hx Smoking Status: Never smoked - Family Anes Hx Family Hx Anesthesia Complications: unknown ANE Labs/Vital Signs - Labs Result Diagrams: 10/11/18 11:00 10/11/18 05:30 - Vital Signs Blood Pressure: 125/64 Heart Rate: 97 Respiratory Rate: 18 O2 Sat (%): 95 Height: 162.56 cm Weight: 50.5 kg ANE Physical Exam - Airway Mallampati Score: Class 2 - ASA Status ASA Status: III ANE Anesthesia Plan Anesthesia Plan: general endotracheal anesthesia, GA w LMA Urgent/Emergent Case: Anes eval completed preop but documented later for safe timely pt care
[2018-10-11] MEDS ORDERED: PHENYLEPHRINE HCL 100 MCG/ML SYR ONE (18:55)
[2018-10-11] MEDS ORDERED: ceFAZolin 1 GM VIAL ONE (18:55)
--- NOTE | 2018-10-11 19:51 | POSTOPPROG ---
Post Op Note Date of Operation: 10/11/18 Surgeon: Chaitanya Torres Anesthesia: LMA Pre-op Diagnosis: L ST femur fx, L Olecranon fx Post-op Diagnosis: same Procedure: ORIF L olecranon, L TFN Inf/Abcess present in the surg proc area at time of surgery?: No EBL: 50-100
[2018-10-11] MEDS ORDERED: NALOXONE HCL 0.4 MG/ML INJ IVP PRN (19:55)
[2018-10-11] MEDS ORDERED: LR 500 ML IV PRN (19:55)
[2018-10-11] MEDS ORDERED: fentaNYL 100 MCG/2 ML INJ IVP PRN (19:55)
--- NOTE | 2018-10-11 19:57 | POSTANESTH ---
Post Anesthetic Evaluation Cardiovascular Status: Similar to Pre-Op Cond Respiratory Status: Similar to Pre-op Cond. Level of Consciousness/Mental Status: Other, See Comment (Pt has dementia and was minimally reponsive pre-operatively.) Pain Control: Adequate, Prn Tx Ordered Nausea/Vomiting Control: Adequate, Prn Tx Ordered Complications Possibly Related to Anesthesia: None Noted
[2018-10-11] MEDS: LR 1,000 ML IV SCH (21:02)
[2018-10-11] MEDS: MIDODRINE HCL 5 MG TAB PO SCH (21:05)
[2018-10-12] MEDS: ceFAZolin 2 GM/DEXTROSE 100 ML IV SCH ×2 (00:33→09:39)
[2018-10-12] MEDS: ACETAMINOPHEN 500 MG TAB PO SCH ×4 (00:34→23:56)
[2018-10-12 05:48] LABS: PLATELET COUNT 122 10^3/uL (150-400)
[2018-10-12] MEDS: HYDROmorphONE/DILAUDID 1 MG/ML INJ IVP PRN ×2 (05:58→23:57)
[2018-10-12] MEDS: CARBIDOPA/LEVODOPA 25 MG/100 MG TAB PO SCH ×4 (09:56→19:47)
[2018-10-12] MEDS: CYANO/VITAMIN B12 1000 MCG TAB PO SCH (09:58)
[2018-10-12] MEDS: FOLIC ACID 1 MG TAB PO SCH (09:59)
[2018-10-12] MEDS: MIDODRINE HCL 5 MG TAB PO SCH ×2 (09:59→16:17)
[2018-10-12] MEDS ORDERED: HYDROmorphONE/DILAUDID 2 MG TAB PO PRN (10:16)
--- NOTE | 2018-10-12 10:38 | TRAUMAPN ---
Trauma Progress Note Assessment/Plan: 10/11/2017 PAD#0 Assessment: No complaints, no new findings VSS, Left arm in splint. No stool since admission ( large volume of soft stool in rectum) Spoke with her sister (medical proxy, currently in [place]) no additional information except that she requests [facility] for rehab. AM Hct pending Plan: Orthopedic intervention today rectal suppository follow Hct PAD#1 POD#1 10/12/2018 Assessment: Urine output decreased this AM. Bolus in progress. Hct down as expected. BNP/ Electrolytes pending Seemed overly sedated after AM IV Dilaudid. Now that speech has cleared her for meds crushed in pureed diet, will try oral meds Plan: continue bradley/ follow output and Hct. Adjust pain meds. Service Transfer accepted by Dr. Mcmanus's PA. Medicine still on service. Subjective: Sedated Objective: Vital Signs Temp Pulse Resp BP Pulse Ox 37.2 C 96 18 100/55 L 96 10/12/18 08:00 10/12/18 08:00 10/12/18 08:00 10/12/18 08:00 10/12/18 08:00 Laboratory Results 10/12/18 05:28 10/11/18 05:30 10/11/18 10/12/18 10/13/18 05:59 05:59 05:59 Intake Total 2850 Output Total 550 Balance 2300 PT 14.1 SEC (12.0-15.0) 10/11/18 05:30 INR 1.07 (0.83-1.16) 10/11/18 05:30 - C-Spine Clearance Cervical Spine Cleared: Yes Provider who Cleared Cervical Spine: Radha Beckford in ER Physical Exam - Physical Exam General Appearance: no apparent distress Neck: non-tender, full range of motion, supple Respiratory: chest non-tender, lungs clear, normal breath sounds Cardiac/Chest: regular rate, rhythm Abdomen: non-tender, soft Pelvic Exam: deferred Rectal: deferred Back: Normal inspection Skin: normal color, warm/dry Extremities: other (Left elbow in tiara wrap dressing. left hip in dressing.) Time Spent w/Patient (minutes): 25
[2018-10-12] MEDS ORDERED: ALBUMIN 5% 500 ML BOTTLE IV ONE (14:24)
[2018-10-12] MEDS ORDERED: ALBUMIN 5% 500 ML IV ONE (14:30)
[2018-10-12] MEDS ORDERED: NS BOLUS 500 ML (Wide open) IV ONE (14:30)
[2018-10-12] MEDS: LR 1,000 ML IV SCH (16:19)
--- NOTE | 2018-10-12 16:41 | HOSPPROG ---
Hospitalist Progress Note Assessment/Plan: 77 yo F w/ hx of PD and dementia presents after a fall with multiple fractures. Plan: L intertrochanteric fracture - POD #1 from nail fixation - post-op care per ortho team L olecranon fracture, possible L radial head fracture - POD #1 from ORIF Parkinson's Disease - Continue Sinemet Dementia - At baseline, resides at memory care unit. Hypotension - suspect autonomic dysregulation from Parkinsons - cont home midodrine - bolused with albumin today, BP improved Limited resuscitation Dispo - cont inpt, transfer to med/surg. Palliative care consult. Subjective: Pt is resting comfortably, denies pain. Has not ambulated. Godfrey in place. Objective: Vital Signs Temp Pulse Resp BP Pulse Ox 36.8 C 95 16 102/68 95 10/12/18 16:00 10/12/18 16:00 10/12/18 16:00 10/12/18 16:00 10/12/18 16:00 Laboratory Results 10/12/18 05:28 10/12/18 10:35 10/11/18 10/12/18 10/13/18 05:59 05:59 05:59 Intake Total 2850 Output Total 550 500 Balance 2300 -500 PT 14.1 SEC (12.0-15.0) 10/11/18 05:30 INR 1.07 (0.83-1.16) 10/11/18 05:30 - Physical Exam Constitutional: no apparent distress Eyes: PERRL Cardiovascular: regular rate and rhythym Respiratory: no respiratory distress Gastrointestinal: normoactive bowel sounds, soft, non-tender abdomen Skin: warm Musculoskeletal: full muscle strength Psychiatric: poor memory ICD10 Worksheet Patient Problems: Problems Problem Status Onset Closed olecranon fracture Acute Intertrochanteric fracture of left femur Acute Left radial head fracture Acute At risk for falling Acute Cat bite of right foot Acute Cellulitis of right foot Acute Fall Acute Hip fracture Acute Pelvis fracture Acute Right thyroid nodule Acute
[2018-10-12] MEDS: ENOXAPARIN 40 MG/0.4 ML SYR SC SCH (17:28)
--- NOTE | 2018-10-12 18:26 | GOP ---
DATE OF OPERATION: 10/11/2018 SURGEON: Chaitanya Torres MD ANESTHESIA: General. PREOPERATIVE DIAGNOSIS: 1. Left intertrochanteric/subtrochanteric femur fracture. 2. Left olecranon fracture. POSTOPERATIVE DIAGNOSIS: 1. Left intertrochanteric/subtrochanteric femur fracture. 2. Left olecranon fracture. PROCEDURE PERFORMED: 1. Open treatment left intertrochanteric/subtrochanteric femur fracture with intramedullary nail fix ation (TFN). 2. Open reduction and internal fixation, left olecranon fracture. 3. Intraoperative use of fluoroscopy. FINDINGS: ESTIMATED BLOOD LOSS: 100 mL. INDICATIONS: The patient is a 77-year-old limited ambulator and long-term memory care resident who s ustained a fall resulting in a left proximal femur and left olecranon fracture. The patient has had previous other falls including 1 that resulted in a right proximal femur fracture. Based on the disp laced nature of her injuries, it was recommended that operative treatment consisting of intramedullar y nail fixation on her femur and open reduction and internal fixation on her olecranon be pursued. T he patient's sister, who serves as her guardian, by phone acknowledged she understood the potential r isks of the operation including, but not limited to, bleeding, infection, neurovascular damage leadin g to loss of limb or limb function, malunion, nonunion, need for hardware removal, pain or functional limitations despite operative treatment and anesthetic risks. She acknowledged she understood the p otential risks of the planned procedure and postoperative plan well and had all questions answered pr ior to surgery. She gave consent for the operative procedure. DESCRIPTION OF PROCEDURE: The patient brought in the operating room after IV antibiotics were admini stered. General anesthetic was administered and she was transferred to the traction fracture table. Both feet were placed in well-padded foot holders. The right leg was "scissored" toward the floor t o allow for radiographic visualization. Traction on the left leg was performed and fluoroscopic view s confirmed favorable reduction of the fracture. The left hip and thigh were prepped and draped in s tandard sterile fashion. A small incision was made proximal to the greater trochanter. Dissection w as carried through the gluteal fascia with electrocautery unit. A guide pin from the [employer]ynthe[employer] trochan teric fixation nail was placed in the tip of the greater trochanter and placed down the intramedullar y canal. Position was confirmed fluoroscopically in AP and lateral images and found to be favorable. The coring reamer was then utilized to create a starting hole. A ball-tipped guide cipriano was then pl aced down the intramedullary canal and position confirmed fluoroscopically. Reaming starting at 10 m m and continuing up to 11.5 mm was performed. Endosteal chatter at the central aspect of the femur w as encountered. The appropriate length 10 mm trochanteric fixation nail was then impacted into place . After confirming appropriate nail position, the guide pin from the spiral blade was then inserted through the aiming guide into the central aspect of the femoral head. Position was confirmed fluoros copically. The step drill was then utilized to create a hole for the spiral blade. Appropriate nichol th spiral blade was impacted into place, gaining position 1 cm from the tip of the femoral head and c entral position on both AP and lateral images. The nail was locked into the spiral blade. A distal locking screw was then placed utilizing a freehand technique. The gluteal fascia was closed with 2-0 Vicryl suture in interrupted fashion. Subcutaneous tissue was closed with 3-0 Vicryl suture in inte rrupted fashion. Skin closed with skin mindy. The wounds were dressed with sterile Adaptic, 4 x 4 , and ABD. Keeping the back table sterile. The patient was then transferred to a right lateral decu bitus position on the operating table with beanbag support, axillary roll, and padding bony prominenc es. Tourniquet was placed on the left upper arm, and the left upper extremity was prepped and draped in standard sterile fashion. After marking the incision and Willie wrap exsanguination, tourniquet was inflated to 250. A portion of a previous posterior elbow incision was utilized and extended distall y. Skin and subcutaneous tissue were sharply incised. Sharp dissection was carried down to the tric eps insertion on the olecranon proximally and to the subcutaneous tissue of the border. A locking pr oximal ulna plate (Synthes) which was a fixed fixation. The plate was pushed flush with the olecrano n proximally and secured initially with a 2.7 mm nonlocking screw. Proximal plate position was confi rmed fluoroscopically. The fracture was then reduced and secured distally with multiple 2.7 mm corti dale locking and 3.5 mm nonlocking screws. Multiple additional 2.4 mm cortical locking screws were pl aced in the proximal segment. Fluoroscopic views confirmed favorable reduction and hardware placemen t. Attention was directed towards closure. Deep tissue was closed with 2-0 Vicryl suture in interru pted fashion. Subcutaneous tissue closed with 3-0 Vicryl suture in interrupted fashion. Skin closed with skin mindy. 0.5% Marcaine without epinephrine was injected in the wound sites. The wounds we re dressed with sterile Adaptic, 4 x 4, Kerlix, and Willie wrap. The patient was placed in a sling. Th e patient was transferred to her bed, extubated, and taken to the recovery room in stable condition p ostoperatively. All sponge, needle, and instrument counts were reported as being correct. DRAINS: None. COMPLICATIONS: None. PLAN: The patient will be readmitted to the intensive care unit for medical management. She would b e weightbearing as tolerated on her left lower extremity and on her left forearm. /[id number]/MODL
--- NOTE | 2018-10-12 19:28 | SOAPPROG ---
SOAP Progress Note Assessment/Plan: Assessment: L intertrochanteric fracture - POD #1 nail fixation L olecranon fracture, possible L radial head fracture - POD #1 from ORIF Continue pain control, PT/OT Possible transfer to today Plan: 10/12/18 19:29 Subjective: Patient seen this morning. Asleep and drowsy lying in bed. No acute events overnight. Objective: Vital Signs Temp Pulse Resp BP Pulse Ox 36.8 C 95 16 102/68 95 10/12/18 16:00 10/12/18 16:00 10/12/18 16:00 10/12/18 16:00 10/12/18 16:00 Laboratory Results 10/12/18 05:28 10/12/18 10:35 10/11/18 10/12/18 10/13/18 05:59 05:59 05:59 Intake Total 2850 1986 Output Total 550 750 Balance 2300 1236 PT 14.1 SEC (12.0-15.0) 10/11/18 05:30 INR 1.07 (0.83-1.16) 10/11/18 05:[address], dry and clean Skin warm and dry unlabored breathing RRR ICD10 Worksheet Patient Problems: Problems Problem Status Onset Closed olecranon fracture Acute Intertrochanteric fracture of left femur Acute Left radial head fracture Acute At risk for falling Acute Cat bite of right foot Acute Cellulitis of right foot Acute Fall Acute Hip fracture Acute Pelvis fracture Acute Right thyroid nodule Acute
[2018-10-13] MEDS: LR 1,000 ML IV SCH ×2 (00:05→18:13)
--- NOTE | 2018-10-13 05:58 | SOAPPROG ---
SOAP Progress Note Assessment/Plan: Assessment: S/P L TFN, ORIF L Olecranon Cognitive state ~ pre op status Limited mobility L Thigh - dressing intact. Limb length/rotation = opposite side, distal NVI L elbow - dressing intact, Distal NV grossly intact Plan: OOB, PT/OT May be WBAT LLE, WB on forearm LUE OK for transfer to SNF from ortho standpoint when medically stable F/U 2 wks 10/13/18 05:54 Objective: Vital Signs Temp Pulse Resp BP Pulse Ox 36.8 C 97 18 109/59 L 99 10/12/18 23:51 10/12/18 23:51 10/12/18 23:51 10/12/18 23:51 10/12/18 23:51 Laboratory Results 10/12/18 05:28 10/12/18 10:35 10/11/18 10/12/18 10/13/18 05:59 05:59 05:59 Intake Total 2850 3106 Output Total 550 1000 Balance 2300 2106 PT 14.1 SEC (12.0-15.0) 10/11/18 05:30 INR 1.07 (0.83-1.16) 10/11/18 05:30 ICD10 Worksheet Patient Problems: Problems Problem Status Onset Closed olecranon fracture Acute Intertrochanteric fracture of left femur Acute Left radial head fracture Acute At risk for falling Acute Cat bite of right foot Acute Cellulitis of right foot Acute Fall Acute Hip fracture Acute Pelvis fracture Acute Right thyroid nodule Acute
[2018-10-13] MEDS: ENOXAPARIN 40 MG/0.4 ML SYR SC SCH (08:12)
[2018-10-13] MEDS: FOLIC ACID 1 MG TAB PO SCH (08:12)
[2018-10-13] MEDS: CYANO/VITAMIN B12 1000 MCG TAB PO SCH (08:12)
[2018-10-13] MEDS: MIDODRINE HCL 5 MG TAB PO SCH ×2 (08:12→15:53)
[2018-10-13] MEDS: CARBIDOPA/LEVODOPA 25 MG/100 MG TAB PO SCH ×4 (08:12→19:55)
--- NOTE | 2018-10-13 10:01 | CPEKG ---
Test Reason : pain Blood Pressure : / mmHG Vent. Rate : 080 BPM Atrial Rate : 080 BPM P-R Int : 113 ms QRS Dur : 096 ms QT Int : 493 ms P-R-T Axes : 012 -49 -50 degrees QTc Int : 569 ms Sinus rhythm Left anterior fascicular block Nonspecific T abnormalities, diffuse leads Prolonged QT interval Confirmed by Grant Evans ([id number]) on 10/13/2018 10:01:17 AM Referred By: Confirmed By:Grant Evans
--- NOTE | 2018-10-13 11:14 | HOSPPROG ---
Hospitalist Progress Note Assessment/Plan: 77 yo F w/ hx of PD and dementia presents after a fall with multiple fractures. Plan: L intertrochanteric fracture - POD #2 from nail fixation - post-op care per ortho team, PT/OT L olecranon fracture, possible L radial head fracture - POD #2 from ORIF Parkinson's Disease - Continue Sinemet Dementia - seems to be returning to baseline, resides at memory care unit. Hypotension - suspect autonomic dysregulation from Parkinsons - cont home midodrine - responsive to albumin bolus yesterday D/C kirk, PT/OT Limited resuscitation DVT PPLX - Lovenox Dispo - cont inpt, transfer to med/surg. Palliative care consult. Subjective: Pt is a bit more awake today, she is confused / demented. No fevers. Up to chair with sling support, not ambulatory. Taking little po. Objective: Vital Signs Temp Pulse Resp BP Pulse Ox 36.9 C 94 16 124/65 H 99 10/13/18 07:43 10/13/18 07:43 10/13/18 07:43 10/13/18 07:43 10/13/18 07:43 Laboratory Results 10/13/18 06:11 10/12/18 10:35 10/12/18 10/13/18 10/14/18 05:59 05:59 05:59 Intake Total 2850 3106 Output Total 550 1000 Balance 2300 2106 PT 14.1 SEC (12.0-15.0) 10/11/18 05:30 INR 1.07 (0.83-1.16) 10/11/18 05:30 - Physical Exam Constitutional: no apparent distress Eyes: PERRL Ears, Nose, Mouth, Throat: moist mucous membranes Cardiovascular: regular rate and rhythym Respiratory: no respiratory distress, clear to auscultation Gastrointestinal: normoactive bowel sounds, soft, non-tender abdomen Skin: warm Musculoskeletal: generalized weakness Psychiatric: poor memory ICD10 Worksheet Patient Problems: Problems Problem Status Onset Closed olecranon fracture Acute Intertrochanteric fracture of left femur Acute Left radial head fracture Acute At risk for falling Acute Cat bite of right foot Acute Cellulitis of right foot Acute Fall Acute Hip fracture Acute Pelvis fracture Acute Right thyroid nodule Acute
[2018-10-13] MEDS ORDERED: HYDROmorphONE/DILAUDID 1 MG/ML INJ IVP PRN (11:16)
[2018-10-13] MEDS ORDERED: traMADol 50 MG TAB PO PRN (11:16)
[2018-10-13] MEDS: ACETAMINOPHEN 500 MG TAB PO SCH ×2 (11:24→18:22)
--- NOTE | 2018-10-13 11:58 | ASMTCMCOM ---
CM Note CM Note Notes: PT/OT are recommending SNF. Spoke with Monse's sister yesterday and she states she wants her to go to [facility] if possible. They do not want [facility]. A referral was sent to [facility]. CM will follow. Date Signed: 10/13/2018 11:57 AM Electronically Signed By:Chrissie Goldsmith LCSW
[2018-10-14] MEDS: ACETAMINOPHEN 500 MG TAB PO SCH ×3 (00:09→18:02)
[2018-10-14] MEDS ORDERED: LACTULOSE 20 GM/30 ML UDCUP PO PRN (09:46)
[2018-10-14] MEDS ORDERED: BISACODYL 10 MG SUPP PR PRN (09:46)
[2018-10-14] MEDS ORDERED: MAGNESIUM HYDROXIDE 30 ML UDCUP PO PRN (09:46)
[2018-10-14] MEDS ORDERED: POLYETHYLENE GLYCOL 3350 17 GM PKT PO PRN (09:46)
[2018-10-14] MEDS: MIDODRINE HCL 5 MG TAB PO SCH ×2 (09:53→18:01)
[2018-10-14] MEDS: CARBIDOPA/LEVODOPA 25 MG/100 MG TAB PO SCH ×4 (09:54→21:09)
[2018-10-14] MEDS: CYANO/VITAMIN B12 1000 MCG TAB PO SCH (09:54)
[2018-10-14] MEDS: ENOXAPARIN 40 MG/0.4 ML SYR SC SCH (09:55)
[2018-10-14] MEDS: FOLIC ACID 1 MG TAB PO SCH (09:56)
--- NOTE | 2018-10-14 11:36 | HOSPPROG ---
Hospitalist Progress Note Assessment/Plan: 77 yo F w/ hx of PD and dementia presents after a fall with multiple fractures. # Parkinson's disease with advanced dementia currently resides at memory care unit. This will cause difficulty with any type of her rehabilitation. * PT and OT as tolerated # left intertrochanteric fracture, postop day 3 from nail fixation * Postop care per Ortho # left olecranon fracture status post ORIF, postop day 3. # hypotension likely autonomic dysregulation from Parkinson's disease * Continue midodrine # DVT prophylaxis on Lovenox query palliative care Subjective: Patient new to me and chart reviewed. Lying in bed, minimally communicative. Objective: Vital Signs Temp Pulse Resp BP Pulse Ox 36.7 C 90 14 124/57 H 91 L 10/14/18 08:57 10/14/18 08:57 10/14/18 08:57 10/14/18 08:57 10/14/18 08:57 Laboratory Results 10/14/18 05:55 10/12/18 10:35 10/13/18 10/14/18 10/15/18 05:59 05:59 05:59 Intake Total 3106 2597 Output Total 1000 450 300 Balance 2106 2147 -300 PT 14.1 SEC (12.0-15.0) 10/11/18 05:30 INR 1.07 (0.83-1.16) 10/11/18 05:30 - Physical Exam Constitutional: chronically ill appearing Eyes: PERRL (Small) Cardiovascular: regular rate and rhythym Respiratory: no respiratory distress, clear to auscultation Gastrointestinal: tenderness (Mild diffuse tenderness in her abdomen, no obvious masses no guarding) Genitourinary: no bladder fullness Skin: warm Musculoskeletal: joint tenderness (Hip and elbow), generalized weakness Neurologic: No AAOx3 Psychiatric: encephalopathic, poor memory ICD10 Worksheet Patient Problems: Problems Problem Status Onset Cat bite of right foot Acute Cellulitis of right foot Acute At risk for falling Acute Fall Acute Right thyroid nodule Acute Hip fracture Acute Pelvis fracture Acute Intertrochanteric fracture of left femur Acute Closed olecranon fracture Acute Left radial head fracture Acute
[2018-10-14] MEDS: SENNOSIDES/DOCUSATE SODIUM TAB PO SCH (21:09)
[2018-10-15] MEDS: ACETAMINOPHEN 500 MG TAB PO SCH ×2 (03:37→10:15)
[2018-10-15 08:04] VITALS: BP 140/93
[2018-10-15] MEDS: SENNOSIDES/DOCUSATE SODIUM TAB PO SCH (10:15)
[2018-10-15] MEDS: CYANO/VITAMIN B12 1000 MCG TAB PO SCH (10:15)
[2018-10-15] MEDS: CARBIDOPA/LEVODOPA 25 MG/100 MG TAB PO SCH ×2 (10:16→13:07)
[2018-10-15] MEDS: FOLIC ACID 1 MG TAB PO SCH (10:16)
[2018-10-15] MEDS: ENOXAPARIN 40 MG/0.4 ML SYR SC SCH (10:17)
[2018-10-15] MEDS: MIDODRINE HCL 5 MG TAB PO SCH (10:17)
--- NOTE | 2018-10-15 11:59 | PDIAF ---
- Diagnosis Diagnosis: hip fracture, s/p pinning, s/p elbow fx Code Status: Limited Resuscitation - Medication Management Discharge Medications: electronically signed and located in the Home Medication List. - Orders Services needed: Registered Nurse, Certified Client Service Executive, Master Rustic Fence Builder , Physical Therapy, Occupational Therapy Diet Recommendation: no restrictions on diet Diet Texture: Dysphagia 1 - Pureed, [place] Thick Liquids, Meds Whole in Puree Additional Instructions: Weight bearing as tolerated. may use forearm walker ( left arm) - Follow Up Care Current Providers and Referrals: Patient,NotPresent [Primary Care Provider] - As per Instructions
--- NOTE | 2018-10-15 12:06 | ASMTLACE ---
LACE Length of stay for Answers: 4-6 days current admission Acuity / Level of Answers: Yes Care: Did the patient have an inpatient admission? Comorbidities - select Answers: Dementia all that apply History of falls Other Notes: Parkinson's disease # of Emergency department Answers: 1-2 visits in the last 6 months Score: 15 Date Signed: 10/15/2018 12:06 PM Electronically Signed By:Penny Walker RN
--- NOTE | 2018-10-15 12:11 | ASMTDCNOTE ---
Case Management Discharge Discharge Order Complete? Answers: Yes Patient to Obtain Answers: Other Notes: [facility] Transportation Arranged Answers: [facility] Stretcher Transport will Pick (Date 10/15/2018 02:00 PM & Time) Case Management Transport Answers: Yes Form Complete Family Notified Answers: Yes Discharge Comments Notes: Patient discharged to [facility]. [facility] stretcher transport arranged by [facility]. PCS by me. I called patient's sister Key Ordonez and notified her of discharge. MARITZA Cardona to call report. Date Signed: 10/15/2018 12:11 PM Electronically Signed By:Penny Walker RN
--- NOTE | 2018-10-15 12:28 | GDS ---
Date of Admission 10/11/2018 Date of Discharge 10/15/2018 DIAGNOSES: 1. Parkinson disease with advanced dementia, currently residing at Memory Care Unit. 2. Left intertrochanteric fracture postop day #4 from nail fixation. 3. Left olecranon fracture, status post open reduction, internal fixation postop day #4. 4. Hypotension, likely autonomic dysregulation for Parkinson disease, on midodrine. 5. Deep vein thrombosis prophylaxis. Currently on Lovenox. Can discontinue per detention recommendations. PROCEDURES DONE: 1. Left intertrochanteric/subtrochanteric femur fracture, status post intramedullary nail fixation. 2. ORIF left olecranon fracture by Dr. Torres. 3. Pelvis CT. 4. Cervical spine CT. 5. Head CT. CONSULTATIONS: Include Trauma, Dr. Wilfrid Garcia, and Orthopedics, Dr. Chaitanya Torres. HOSPITAL COURSE: The patient is a 77-year-old with advanced Parkinson disease and dementia who sustained a mechanical fall. She is living at [facility] and was found on a carpeted floor. Per the patient , she fell down 6 steps, slipping on some peanuts. Patient was unclear how long she was down at the time she was found. She was transported to [facility]. The above procedures were done and the main issues were a left hip fracture and elbow fracture. She underwent ORIF of both of those by Dr. Torres who needs to see her in followup in 2 weeks. Her postop course was notable by some mild hypotension, which was improved with midodrine. Her mental status also has been waxing and waning, which is likely due to her Parkinson disease and dementia. She will need ongoing rehab at [facility] due to her Parkinson disease and the above fractures. CONDITION ON DISCHARGE: Fair. Vital signs are stable. Her oxygen saturation is 92% on room air. She is afebrile. Heart rate 84, blood pressure 140/90. DISCHARGE MEDICATIONS: Please see discharge medication form. FOLLOWUP: She will be discharged to [facility]. Total time spend with patient the day of discharge and coordination of care is 35 minutes. /[id number]/MODL MTDD
--- NOTE | 2018-10-15 14:42 | ASDISCHSUM ---
Discharge Information Plan Status:SNF Medically Cleared to Leave: Discharge Date:10/15/2018 02:09 PM CM D/C Disposition: ADT D/C Disposition:Half-Way Facility Projected Discharge Date:10/16/2018 11:00 AM Transportation at D/C: Discharge Delay Reason: Follow-Up Date:10/16/2018 11:00 AM Discharge Slot: Final Diagnosis: Placement Information Referral Type:*[facility]/SNF Referral ID:[id number] Provider Name:[facility] Address 1:[address] Address 2: City:[place] Selection Factors: State:[place] Patient Contact Information Contact Name:RUDI Relationship:Sister Address: [address] [place] City:[facility] Alternate Phone: State/Zip Code:[place] [address] Email: Financial Information Financial Class:Medicare Primary Plan Desc:MEDICARE INPATIENT Primary Plan Number:[id number] Secondary Plan Desc:[facility] Secondary Plan Number:[id number] Assessment Information LACE LACE Length of stay for Answers: 4-6 days current admission Acuity / Level of Answers: Yes Care: Did the patient have an inpatient admission? Comorbidities - select Answers: Dementia all that apply History of falls Other Notes: Parkinson's disease # of Emergency department Answers: 1-2 visits in the last 6 months Score: 15 Date Signed: 10/15/2018 12:06 PM Electronically Signed By:Penny Walker RN [facility] Initial CM Assessment Living Arrangements What is your living Answers: Alone arrangement? Who do you live with? Type Of Residence What kind of residence do Answers: Assisted Living you live in? Type of Residence Facility Name Notes: [facility] Living Discharge Plan Comments Coordination Status Comments Notes: Patient is a 77yo single female who is a resident of [facility] and was found down on a carpeted floor by EMS and brought to [facility] ER. Patient has been admitted for hip fracture, pelvis fracture, intertrochanteric fracture of left femur, closed olecranon fracture and left radial head fracture. PT/OT/CODE ENFORCEMENT SUPERVISOR/Inpatient rehab evals have been ordered. Patient's sister is her SHREYAS, she lives in [place]. Patient's records from [facility] indicate patient is no CPR, do not intubate, and no ICU visit. An attempt to reach patient's sister has been made. CM will continue to attempt to make contact. D/C plan TBD. CM will follow. Date Signed: 10/11/2018 12:45 PM Electronically Signed By:Chrissie Goldsmith LCSW [facility] CM Progress Note CM Note CM Note Notes: PT/OT are recommending SNF. Spoke with Monse's sister yesterday and she states she wants her to go to [facility] if possible. They do not want [facility]. A referral was sent to [facility]. CM will follow. Date Signed: 10/13/2018 11:57 AM Electronically Signed By:Chrissie Goldsmith LCSW Case Management Discharge Plan Note Case Management Discharge Discharge Order Complete? Answers: Yes Patient to Obtain Answers: Other Notes: [facility] Medications Transportation Arranged Answers: [facility] Stretcher Transport will Pick (Date 10/15/2018 02:00 PM & Time) Case Management Transport Answers: Yes Form Complete Family Notified Answers: Yes Discharge Comments Notes: Patient discharged to [facility]. [facility] stretcher transport arranged by [facility]. PCS by me. I called patient's sister Key Ordonez and notified her of discharge. MARITZA Cardona to call report. Date Signed: 10/15/2018 12:11 PM Electronically Signed By:Penny Walker RN Intervention Information
== END 2018-10-15 14:09 | DRG 482 ==
LOC: EDUNIT# → F2N 10-11 02:15 → F3N 10-14 14:03
PROVIDERS: ADMIT Surgery; ATTEND Orthopaedic Surgery Foot and Ankle Surgery
PROC: 0QS706Z Reposition Left Upper Femur with Intramedullary Internal Fixation Device, Open Approach (ICD-10-PCS; principal; 2018-10-11 16:45)
PROC: 0PSL04Z Reposition Left Ulna with Internal Fixation Device, Open Approach (ICD-10-PCS; principal; 2018-10-11 16:45)
PROC: 30233N1 Transfusion of Nonautologous Red Blood Cells into Peripheral Vein, Percutaneous Approach (ICD-10-PCS; 2018-10-14)
DX: S72.142A Displaced intertrochanteric fracture of left femur, initial encounter for closed fracture (principal); S52.022A Displaced fracture of olecranon process without intraarticular extension of left ulna, initial encounter for closed fracture; G31.83 Neurocognitive disorder with Lewy bodies; F02.80 Dementia in other diseases classified elsewhere, unspecified severity, without behavioral disturbance, psychotic disturbance, mood disturbance, and anxiety; W10.8XXA Fall (on) (from) other stairs and steps, initial encounter; Y92.128 Other place in nursing home as the place of occurrence of the external cause; I10 Essential (primary) hypertension
CPT/HCPCS: 92526-GN; 92610-GN; 96374; 97163-GP; 97167-GO; 97530-GO; 97530-GP; 97535-GO; C1713; C1769; J0690; J1170; J1650; J2370; J2405; J2704; J2765; J3010; P9016; P9041